=== PATIENT | male | born 1950 | race Caucasian/White ===

== ENCOUNTER 2019-11-11 06:00 | Outpatient (RCR) | payer MEDICARE, SELFPAY | END 2019-12-11 23:59 | disposition home or self-care (01) | LOC: TPT 06:00 | PROVIDERS: Family Provider Nurse Practitioner Family; Referring Provider Nurse Practitioner; Visit Provider Nurse Practitioner | DX: M54.5 Low back pain (principal) | CPT/HCPCS: 97032; 97110; 97140; 97161; 97530 ==

== ENCOUNTER 2019-12-12 06:00 | Outpatient (RCR) | payer MEDICARE, SELFPAY | END 2020-01-09 23:59 | disposition home or self-care (01) | LOC: TPT 06:00 | PROVIDERS: Family Provider Nurse Practitioner Family; Referring Provider Nurse Practitioner; Visit Provider Nurse Practitioner | DX: M54.5 Low back pain (principal); M79.10 Myalgia, unspecified site; Z96.642 Presence of left artificial hip joint | CPT/HCPCS: 97110 ==

== ENCOUNTER → 2020-05-24 13:39 | Outpatient (BNVA) | payer MEDICARE, SELFPAY | PROVIDERS: Family Provider Nurse Practitioner Family; PCP Nurse Practitioner Family; Visit Provider Urology | DX: Z12.5 Encounter for screening for malignant neoplasm of prostate (principal); N40.1 Benign prostatic hyperplasia with lower urinary tract symptoms; N13.8 Other obstructive and reflux uropathy | CPT/HCPCS: 81001 ==

== ENCOUNTER 2020-12-22 14:51 | Emergency (ER) | payer MEDICARE, SELFPAY ==
[2020-12-22 14:58] VITALS: BP 115/67; PULSE 84; RESP 18; TEMP 36.4; O2SAT 95; BMI 25.0
[2020-12-22 15:00] VITALS: BP 133/75; PULSE 80; RESP 16; TEMP 36.4; O2SAT 95
--- NOTE | 2020-12-22 15:07 | XR_ITS ---
WS: [id number] Left knee, 3 views, 12/22/2020 Clinical Data: fall Comparison: None. Findings: No fractures or dislocations are seen. The joint spaces are normal. The patella is intact. The soft t issues are unremarkable. There is an anterior superior spur of the patella. XR/XR knee LT 3V* [id number] Impression: Negative for fracture of the left knee.
--- NOTE | 2020-12-22 15:07 | XR_ITS ---
WS: [id number] Left wrist, 3 views, 12/22/2020 Clinical Data: fall Comparison: Left wrist, 12/08/2008. Findings: No fractures or dislocations are seen. The carpal bones are intact. There is no soft tissue swelling. The distal radius and ulna are not remarkable. The small fragment which is probably adjacent to the triquetrum is again seen. XR/XR wrist LT min 3V* [id number] Impression: Negative for new fracture of the left wrist.
--- NOTE | 2020-12-22 15:07 | XR_ITS ---
WS: [id number] Left ankle, 3 views, 12/22/2020 Clinical Data: fall Comparison: None Findings: There is an old fracture of the distal left tibia and of the distal left fibula. There is also an old fracture of the dome of the talus. The old tibial fracture has been repaired with an anterior plate and multiple orthopedic screws. No new fractures are seen. XR/XR ankle LT min 3V* [id number] Impression: 1. Negative for new fractures of the left ankle. 2. Internal fixation of old distal left tibial fracture, healed distal left fib ular fracture and healed left talar fracture.
--- NOTE | 2020-12-22 15:07 | W.ED.FALL ---
HPI - Fall General: Chief Complaint: Fall Stated Complaint: FELL, L SIDED PAIN Time Seen by Provider: 12/22/20 15:02 History of Present Illness: HPI Narrative: Patient slipped on ice landing on left side he said his left leg when in underneath him now he has left ankle pain (has a history of left ankle surgery with plates), left knee pain, and left wrist pain and he presents holding his left wrist patient did ambulate in. complaint: fall Onset (ago): hour(s) Fall from: standing Fall witnessed: yes, by family Place fall occurred: home Loss of consciousness: None Prolonged down time: no Symptoms prior to fall: none Context: tripped/slipped (Icy conditions) Location of injury: other (Left wrist knee and ankle) Location of injury - extremities: Left: hand, knee and ankle Severity: mild Severity scale (1-10): 3 Quality: aching Associated symptoms-after fall: Reports difficulty walking; Denies abdominal pain or chest pain Review of Systems Const: Denies: fever(s), chills or body aches Eyes: Denies: change in vision or blurry vision ENMT: Denies: throat pain or nasal congestion Card: Denies: chest pain or dyspnea on exertion Resp: Denies: dyspnea, productive cough or non-productive cough GI: Denies: abdominal pain, nausea or vomiting : Denies: difficulty urinating Musc: Reports: extremity pain and joint pain Skin/Breast: Denies: rash Neuro: Reports: difficulty walking Psych: Denies: anxiety or depression Himanshu/Lymph: Denies: easy bruising PFSH ED PFSH: Medical History (Updated 05/24/20 @ 15:13 by Agustin Craig MD) BPH loc w urin obs/LUTS Renal calculi Surgical History (Updated 05/24/20 @ 15:13 by Agustin Craig MD) H/O foot surgery S/P cholecystectomy S/P hernia repair Family History Father , 72 Lung disease Social History Smoking and tobacco status: former smoker Alcohol intake: never Marital status: Current occupational status: retired and disabled Physical Exam Const: COMMON NORMALS: no acute distress, average body habitus and patient oriented x3 HENMT: COMMON NORMALS: normocephalic HEAD & SCALP: normal to inspection and normocephalic FACE & SINUS: normal facial exam Eye: COMMON NORMALS: conjunctivae normal GENERAL EYE: appearance normal, both eyes and all related structures CONJUNCTIVA: Yes conjunctivae normal Neck/C-Spine: COMMON NORMALS: no JVD Chest: COMMONS NORMALS: normal inspection of the chest Resp: COMMON NORMALS: normal respiratory effort and clear to auscultation bilaterally AUSCULTATION: clear to auscultation bilaterally Cardio: COMMON NORMALS: no JVD, regular rate and regular rhythm RATE: regular rate RHYTHM: regular rhythm GI: COMMON NORMALS: Normal to inspection, nondistended, normoactive bowel sounds present Extremity: LEFT UPPER EXTREMITY: Yes wrist (Tender but has good range of motion no swelling) Left wrist: Yes neurovascular exam (Intact) LEFT LOWER EXTREMITY: Yes knee joint (Pain about 1 to 2 inches posterior and distal of the knee no swelling) and Yes ankle joint (Your to the medial aspect posteriorly no swelling) Neuro: COMMON NORMALS: patient oriented x3 and CN's II-XII intact bilaterally Course Vital Signs: Vital signs: Vital Signs Temperature 97.6 F 12/22/20 14:58 Pulse Rate 84 12/22/20 14:58 Respiratory Rate 18 12/22/20 14:58 Blood Pressure 115/67 12/22/20 14:58 Pulse Oximetry 95 12/22/20 14:58 Discharge Plan Discharge Prescriptions: No Action omeprazole 40 mg capsule,delayed release(DR/EC) 40 mg PO DAILY RF: 0 tamsulosin 0.4 mg capsule 0.4 mg PO DAILY RF: 0 Coding Level of Care Code ED Shoe Lining Fitter for Rejig Nori
--- NOTE | 2020-12-22 15:21 | PC.NURSE ---
XR performed at bedside
[2020-12-22 15:22] VITALS: BP 133/75; PULSE 80; RESP 16; O2SAT 95
[2020-12-22 16:10] VITALS: BP 114/62; PULSE 73; RESP 16; O2SAT 96
== END 2020-12-22 16:27 | disposition home or self-care (01) ==
PROVIDERS: Emergency Provider Nurse Practitioner Family; PCP Nurse Practitioner Family
DX: M25.572 Pain in left ankle and joints of left foot (principal); Z87.891 Personal history of nicotine dependence
CPT/HCPCS: 73110; 73562; 73610; 99282

== ENCOUNTER 2022-02-24 13:23 | Observation (INO) | payer MEDICARE, SELFPAY ==
[2022-02-24] VITALS (15 sets, daily range): BP systolic 106–169; BP diastolic 66–94; PULSE 52–72; RESP 13–27; O2SAT 97–99; BMI 26.4
--- NOTE | 2022-02-24 13:40 | XRR_ITS ---
PROCEDURE INFORMATION: Exam: XR Chest Exam date and time: 02/24/2022 1:47 PM Age: 71 years old Clinical indication: Pain; Chest pressure; Additional info: Chest pain TECHNIQUE: Imaging protocol: XR of the chest. Views: 1 view. COMPARISON: CR Chest 2 views* [id number] 02/19/2018 10:13 PM FINDINGS: Lungs: Unremarkable. No consolidation. Pleural spaces: Unremarkable. No pleural effusion. No pneumothorax. Heart/Mediastinum: Stable cardiomediastinal silhouette. Bones/joints: Unremarkable. XR/XR chest 1V portable [id number] IMPRESSION: No evidence of active cardiopulmonary disease.
--- NOTE | 2022-02-24 13:40 | ECG_ITS ---
[facility] Test Date: 2022-02-24 Pat Name: Arturo Curry Department: Room: Gender: Male Emr Analyst: : 1950 Requested By: Paul Mae Order Number: [id number] Nikolas MD: Марина Gandara M.D. Measurements Intervals [place] Rate: 55 P: 94 MA: 183 QRS: -34 QRSD: 106 T: 45 QT: 396 QTc: 382 Interpretive Statements SINUS BRADYCARDIA LEFT AXIS DEVIATION [QRS AXIS < -30] INCOMPLETE RIGHT BUNDLE BRANCH BLOCK [90+ ms QRS DURATION, TERMINAL R IN V1/V2, 40+ ms S IN I/aVL/V4/V5/V6] Compared to ECG 02/24/2022 13:35:31 No significant changes Electronically Signed On 02-25-2022 16:13:11 CDT by Марина Gandara M.D. [id number]
[2022-02-24 13:52] LABS: Basophils % 0.5 %; Eosinophils # 0.1 10^3/uL (0.0-0.8); Eosinophils % 1.4 %; Hemoglobin 14.7 g/dL (11.7-16.6); Lymphocytes # 2.3 10^3/uL (0.8-4.8); Lymphocytes % 29.4 %; Mean Corpuscular HGB Conc 32.7 g/dL (30.0-36.0); Mean Corpuscular Hemoglobin 29.2 pg (28.0-34.0); Mean Corpuscular Volume 89.5 fl (80-94); Mean Platelet Volume 9.8 fL (7.4-10.4); Monocytes # 0.9 10^3/uL (0.2-0.9); Monocytes % 10.8 %; Neutrophils # 4.59 10^3/uL (1.8-7.7); Neutrophils % 57.6 %; Nucleated Red Blood Cells % 0 %; Platelet Count 294 10^3/cmm (130-400); Red Blood Count 5.03 10^6/uL (4.1-5.3); Red Cell Distribution Width 12.4 % (12.1-15.1)
[2022-02-24] MEDS: aspirin 325 mg Tablet PO (14:07)
--- NOTE | 2022-02-24 14:14 | W.ED.GENADLT ---
HPI - General Adult General: Chief complaint: Chest Pain Stated complaint: chest pain / left arm pain Time Seen by Provider: 02/24/22 13:40 History of Present Illness: CC: Chest Pain HPI: This is a [71]yo patient hx of HTN, GERD presenting to the ED complaining of acute sudden onset was chest pressure started about an hour ago. Patient says that she was walking at the buggy when he suddenly developed chest pressure lasting for 20 minutes with radiation to the L neck/jaw and L arm. Patient had some chest pain when he first presented to the triage area however no longer having pain. No associated with shortness of breath, chest pain or dyspnea on exertion. Pain is not tearing in nature and does not radiate to the back. Pain not associated with vomiting or PO intake. Denies any recent sympathomimetic drug use. Patient denies any cough. Denies palpitations, dysphagia, diaphoresis, radiation of pain to bilateral arms, jaw. Denies F/N/V/D. Patient denies any recent immobility, surgery, unilateral leg swelling, or prior PE. Patient denies any orthopnea. Onset: 1 hr ago Duration: intermittent lasting for 20 minutes Location: home Severity: moderate Associated symptoms: Reports chest pain; Deny dyspnea, nausea, rash, palpitations or vomiting Review of Systems Const: Denies: fever(s) or chills Eyes: Denies: change in vision ENMT: Denies: mouth pain Card: Reports: chest pain; Denies: palpitations Resp: Denies: dyspnea or non-productive cough GI: Denies: abdominal pain, nausea, vomiting or diarrhea : Denies: dysuria Musc: Denies: extremity pain Skin/Breast: Denies: rash or new lesions Neuro: Denies: weakness in extremities Psych: Reports: other (Normal mood) Himanshu/Lymph: Denies: easy bruising PFSH ED PFSH: Medical History BPH loc w urin obs/LUTS Renal calculi Surgical History H/O foot surgery S/P cholecystectomy S/P hernia repair Family History Father , 72 Lung disease Social History Smoking and tobacco status: former smoker Alcohol intake: never Marital status: Current occupational status: retired and disabled Physical Exam Const: COMMON NORMALS: alert HENMT: COMMON NORMALS: atraumatic HEAD & SCALP: atraumatic MOUTH: moist mucous membranes not abnormal Eye: COMMON NORMALS: EOMs intact bilaterally and conjunctivae normal CONJUNCTIVA: Yes conjunctivae normal Neck/C-Spine: COMMON NORMALS: full ROM and supple Resp: COMMON NORMALS: normal respiratory effort and clear to auscultation bilaterally AUSCULTATION: clear to auscultation bilaterally Cardio: COMMON NORMALS: regular rate RATE: regular rate OTHER: 2+ radial pulses b/l GI: COMMON NORMALS: Soft to palpation and non-tender PALPATION: Yes Soft to palpation Extremity: COMMON NORMALS: full ROM Neuro: SENSORIUM/ORIENTATION: Yes alert MOTOR EXAM: No Abnormal motor strength present and Other motor observations present (no focal motor deficits) Psych: COMMON NORMALS: speech normal SPEECH: Yes normal speech MOOD & AFFECT: Yes euthymic mood Course Vital Signs: Vital signs: Vital Signs Pulse Rate 58 L 02/24/22 16:43 Respiratory Rate 18 02/24/22 16:43 Blood Pressure 147/94 02/24/22 16:43 Pulse Oximetry 99 02/24/22 16:43 [facility] - General Adult Medical Decision Making [71]yo patient w/ hx of HTN presenting to the ED with evaluation of new onset of chest pressure x 1 hr lasting for 20 minutes. HDS, pulse 2+ radially bilaterally, no signs of fluid overload, AAOx3, neuro exam intact. Given History and Exam today I have no suspicion for ACS, Pneumothorax, Pneumonia, Pulmonary Embolus, Tamponade, Aortic Dissection or other emergent problems as a cause for this presentation. Workup: ECG x 2, CXR, CBC, BMP, Troponinx 2 Interventions: ASA, morphine, nitro Findings: ECG: No overt evidence of STEMI, hyperacute T waves, localizable STD or T wave inversions. No evidence of Brugada?s sign, delta wave, epsilon wave, significantly prolonged QTc, or malignant arrhythmia. No Q waves. Other Labs unremarkable for emergent problems. CXR: Without PTX, PNA, or widened mediastinum Last Stress Test: never Last Heart Catheterization: never HEART score: [2:17pm] On reassessment, the patient is HDS, no complaints of persistent chest pain in the ED after evaluation. ECG is non-ischemic. Troponin of 18 from 10. Discussed case with Dr. Gloria who recommended treating this as an NSTEMI. Patient is placed on Lovenox 1 mg/kg. S/p ASA and pain control. Dispsition: admission Lab Data : 02/24/22 13:41 02/24/22 13:41 Radiology Impressions Chest X-Ray 02/24/22 13:40 IMPRESSION: No evidence of active cardiopulmonary disease. Laboratory Results WBC 8.0 10^3/uL (4.0-10.0) 02/24/22 13:41 RBC 5.03 10^6/uL (4.1-5.3) 02/24/22 13:41 Hgb 14.7 g/dL (11.7-16.6) 02/24/22 13:41 Hct 45.0 % (42.0-52.0) 02/24/22 13:41 MCV 89.5 fl (80-94) 02/24/22 13:41 MCH 29.2 pg (28.0-34.0) 02/24/22 13:41 MCHC 32.7 g/dL (30.0-36.0) 02/24/22 13:41 RDW 12.4 % (12.1-15.1) 02/24/22 13:41 Plt Count 294 10^3/cmm (130-400) 02/24/22 13:41 MPV 9.8 fL (7.4-10.4) 02/24/22 13:41 Neut % (Auto) 57.6 % 02/24/22 13:41 Lymph % (Auto) 29.4 % 02/24/22 13:41 [place] % (Auto) 10.8 % 02/24/22 13:41 Eos % (Auto) 1.4 % 02/24/22 13:41 Baso % (Auto) 0.5 % 02/24/22 13:41 Neut # (Auto) 4.59 10^3/uL (1.8-7.7) 02/24/22 13:41 Lymph # (Auto) 2.3 10^3/uL (0.8-4.8) 02/24/22 13:41 [place] # (Auto) 0.9 10^3/uL (0.2-0.9) 02/24/22 13:41 Eos # (Auto) 0.1 10^3/uL (0.0-0.8) 02/24/22 13:41 Baso # (Auto) 0.0 10^3/uL (0.0-0.1) 02/24/22 13:41 Nucleated RBC % (auto) 0 % 02/24/22 13:41 Nucleated RBCs # 0.0 /100WBC 02/24/22 13:41 Sodium 136 mmol/L (136-145) 02/24/22 13:41 Potassium 4.1 mmol/L (3.5-5.1) 02/24/22 13:41 Chloride 99 mmol/L (98-107) 02/24/22 13:41 Carbon Dioxide 28 mmol/L (22-29) 02/24/22 13:41 Anion Gap 13.1 (5-19) 02/24/22 13:41 BUN 11 mg/dL (8-23) 02/24/22 13:41 Creatinine 1.0 mg/dL (0.7-1.2) 02/24/22 13:41 GFR Calculation Not Reportable 02/24/22 13:41 Glucose 110 mg/dL (65-115) 02/24/22 13:41 Calculated Osmolality 282 mOsm/kg (285-295) L 02/24/22 13:41 Calcium 8.6 mg/dL (8.5-10.5) 02/24/22 13:41 Troponin T Baseline 10 ng/L (0-15) 02/24/22 13:41 Troponin T 120 Minute 18.53 ng/L (0-15) H 02/24/22 15:35 Delta Troponin T 8.53 ABS# (0-10) 02/24/22 15:35 Discharge Plan Discharge Patient Disposition: Admitted As Inpatient Clinical Impression: Chest pain, Elevated troponin Condition: Stable Coding Level of Care Code ED Apartment Maintenance for Alison Fwd Exam Comprehensive
[2022-02-24 14:21] LABS: Anion Gap 13.1 (5-19); Blood Urea Nitrogen 11 mg/dL (8-23); Calcium 8.6 mg/dL (8.5-10.5); Carbon Dioxide 28 mmol/L (22-29); Chloride 99 mmol/L (98-107); Glucose 110 mg/dL (65-115); Osmolality Calculated 282 mOsm/kg (285-295); Potassium 4.1 mmol/L (3.5-5.1); Sodium 136 mmol/L (136-145)
[2022-02-24 14:22] LABS: Troponin(5th) Baseline 10 ng/L (0-15)
--- NOTE | 2022-02-24 15:40 | ECG_ITS ---
[facility] Test Date: 2022-02-25 Pat Name: Arturo Curry Department: Room: 105 Gender: Male Occupational Therapy Assistant: : 1950 Requested By: Paul Mae Order Number: [id number] Nikolas MD: Марина Gandara M.D. Measurements Intervals [place] Rate: 61 P: 112 SC: 185 QRS: -56 QRSD: 110 T: 51 QT: 402 QTc: 407 Interpretive Statements SINUS RHYTHM PATTERN CONSISTENT WITH PULMONARY DISEASE INCOMPLETE RIGHT BUNDLE BRANCH BLOCK [90+ ms QRS DURATION, TERMINAL R IN V1/V2, 40+ ms S IN I/aVL/V4/V5/V6] LEFT ANTERIOR FASCICULAR BLOCK [QRS AXIS <= -45, QR IN I, RS IN II] Compared to ECG 02/25/2022 12:55:59 Left anterior fascicular block now present Sinus bradycardia no longer present Left-axis deviation no longer present Electronically Signed On 02-27-2022 7:50:03 CDT by Марина Gandara M.D. [id number]
[2022-02-24 16:06] LABS: Troponin 5 2HR 18.53 ng/L (0-15)
[2022-02-24 16:10] LABS: Troponin 5 2HR Delta 8.53 ABS# (0-10)
[2022-02-24] MEDS: enoxaparin 80 mg/0.8 mL Syringe SUBCUT (16:33)
--- NOTE | 2022-02-24 18:08 | PC.NURSE ---
HR:57 O2:99 ROOM AIR RR: 20 BP: 158/92 TEMP:97.6 ORAL
--- NOTE | 2022-02-24 18:12 | PC.NURSE ---
Patient arrived to CSU via wheelchair with present at bedside. Patient is not currently experiencing any chest pain. Patient has been oriented to room and use of call negron. Patient has been educated regarding what to expect while in the hospital. VS are stable and patient is alert and oriented. Patient ambulate ad christa. Nurse will continue to monitor.
--- NOTE | 2022-02-24 18:38 | P.HP_ITS ---
Providers/Chief Complaint Admitting Physician: Marisela Gloria MD Primary Care Provider: Britt Zhang APN Chief Complaint: chest pain / left arm pain History of Present Illness Arturo Curry is a 71 year old male with no significant past medical history other than BPH and GERD presented to the hospital for chief complaint of chest pain. Patient stating that lately has been feeling extremely fatigued and lethargic. He states that he has less muscles of his legs because of polio when he was a child. Today when he walked out of the game, he was walking towards his car when he started experiencing chest tightness which are associated with left arm pain. He is describing his chest tightness as a bolus of food being stuck. Chest pain last for about 10 minutes. His arm pain stayed for about 60 minutes. Persistent left-sided arm pain prompted his visit to the ER. He is denying diaphoresis, nausea, vomiting. He considers himself fairly active for his age has not experienced similar symptoms before. Because of recent fatigue and lethargy his daily activities are slightly compromised but he has not experienced any orthopnea, PND or worsening of shortness of breath. He has no previous diagnosis of bradycardia. In the ER he was treated with therapeutic Lovenox, high-dose aspirin, EKG showing incomplete right bundle ashtyn block, first troponin is 10-second is 18 with delta of 8 I have requested D-dimer, serial troponin and EKG, at the time of my evaluation patient was symptom-free heart rate was fluctuating between 62-65, sinus rhythm, family at the bedside, blood pressure 129/66 mmHg. is stating that mostly his heart rate stays above 90 is. Patient is stating that he was given nitroglycerin however I do not see that order in our EMR. Patient is denying cough and shortness of breath on lying flat, his last bowel movement was yesterday. He denies previous history of CHF, [place], coronary disease or sudden cardiac in the family. Review of Systems Const: Reports: body aches Eyes: Denies: change in vision ENMT: Denies: throat pain Card: Reports: chest pain Resp: Denies: dyspnea GI: Denies: abdominal pain : Denies: flank pain Musc: Denies: neck pain Skin/Breast: Denies: rash Psych: Denies: anxiety Endo: Denies: polyuria Himanshu/Lymph: Denies: easy bruising All/Imm: Denies: urticaria Medications/Allergies Home Medications Medication Instructions Recorded Confirmed Last Taken Type omeprazole 40 mg capsule,delayed 40 mg PO DAILY 05/24/20 02/24/22 02/24/22 History release tamsulosin 0.4 mg capsule 0.8 mg PO DAILY 05/24/20 02/24/22 02/24/22 History Allergies Allergy/AdvReac Type Severity Reaction Status Date / Time codeine Allergy ALGY-Difficulty Verified 12/22/20 15:01 Breathing iodine Allergy NA Verified 02/03/20 13:15 morphine Allergy ADR-Halluci Verified 12/22/20 15:01 nating PFSH Acute PFSH: Medical History (Updated 02/24/22 @ 19:09 by Nathalie Manley MD) BPH loc w urin obs/LUTS Hypotestosteronism Poliomyelitis Renal calculi Surgical History H/O foot surgery S/P cholecystectomy S/P hernia repair Family History Father , 72 Lung disease Social History Smoking and tobacco status: former smoker Alcohol intake: never Marital status: Current occupational status: retired and disabled Vitals/I&O/Wt Last Vital Signs Pulse 58 L 02/24/22 17:57 Resp 18 02/24/22 17:15 BP 129/66 02/24/22 17:15 Pulse Ox 99 02/24/22 17:15 Weight last 48 hrs Weight 88.451 kg Physical Exam Narrative: Very pleasant male Looks euvolemic at the bedside S1, S2 No murmur Abdomen soft Bilateral breath sound without any adventitious rhonchi or crackles No active chest pain or shortness of breath Saturating well Heart rate 65 Blood pressure 129/66 limit work EOMI, PERRLA Nonfocal neuro exam NIH 0 Data : 02/24/22 13:41 02/24/22 13:41 A&P Assessment and plan (1) Unstable angina: Status: Acute (2) Sinus bradycardia: Status: Acute Plan 71-year-old gentleman who does not have significant past medical history presented today with chief complaint of chest pain associate with left arm pain, chest pain resolved within 10 minutes and left arm persisted for about 60 minutes as per the patient he was given nitroglycerin which improved his left arm pain Unstable angina Delta troponin 8 EKG showing incomplete bundle branch block, no significant ischemic or infarctive changes on the EKG Will check D-dimer Blood pressure 129/66 minimum 3, heart rate 58 Check TSH He has been given therapeutic dose of Lovenox in the ER I would like to trend his troponin and EKG overnight and decide further in the morning whether we would continue Lovenox therapeutic regimen I will request stress test for Saturday and monitor him in the hospital on Saturday Add low-dose lisinopril We will give him therapeutic dose of Plavix Further dose of Plavix could be decided after overnight serial troponin and EKG For now continue aspirin, statins, lisinopril, hold off on AV sierra blocking agent because of bradycardia In case of any recurrent chest pain I would not recommend nitroglycerin, would recommend morphine Will update cardiology if he gets recurrent symptoms at rest during his stay Bradycardia Rule out PE however risk factors are low Check D-dimer Not on any AV sierra blocking agent Incomplete right bundle branch block Rule out ACS Full code Cardiac diet DVT prophylaxis Lovenox updated Daughter at the bedside as well All questions were answered to the satisfaction Attestations Medical Necessity Statement*: will need stress test on Saturday we are not able to do a stress test over the weekend, he needs monitoring in the hospital for now, we will admit him as observation, anticipating discharge in next 48 hours Time Spent in Patient Care: 45mins Coding Level of Care Code Acute Parachute Panel Joiner for Alison Julio Diagnoses Unstable angina I20.0 Sinus bradycardia R00.1
[2022-02-24 18:59] LABS: D Dimer 0.69 ug/mIFEU (0-0.59)
[2022-02-24 19:13] LABS: Creatine Phosphokinase 42 U/L (39-308); Lactate Dehydrogenase 123 U/L (135-225); Thyroid Stimulating Hormone 1.01 uIU/mL (0.27-4.20)
--- NOTE | 2022-02-24 19:14 | USCV_ITS ---
Arturo Curry Age: 71 Gender: M : 1950 Exam Date: 02/24/2022 23:09 Ordering Phys: Nathalie Manley MD Technologist: Vasyl Gillette Exam Location: [facility] [place]_ Indication: leg cramps HISTORY: leg cramps PROCEDURES: Venous duplex imaging was performed in bilateral lower extremities. The following venous structures were evaluated: common femoral vein, profunda vein, proximal portion of the greater saphenous vein, superficial femoral vein, and the popliteal vein. In addition, the posterior tibial and peroneal trunk were evaluated. Serial compression, augmentation maneuvers, and spectral Doppler flow evaluation were performed. FINDINGS: Normal 2-D Doppler and augmentation and compressibility throughout the lower extremity venous structures. Additional imaging through the proximal calf veins also reveals no thrombus. Limited evaluation of the greater saphenous vein is patent with no thrombus.. The veins were found to be easily compressible with spontaneous blood flow. Non pulsatile flow pattern. CONCLUSIONS No evidence of DVT in the above-mentioned identifiable veins. Dr Vanesa Paz MD [facility] (Electronically Signed) Final Date: 26 February 2022 17:28 S
--- NOTE | 2022-02-24 19:14 | USCV_ITS ---
Arturo Curry Age: 71 Gender: M : 1950 Exam Date: 02/24/2022 23:40 Ordering Phys: Nathalie Manley MD Technologist: Vasyl Gillette [place] [facility] [place]: Unstable Angina BP: 140 / 80 HR: 64 Rhythm: Sinus Technical Quality: Adequate MEASUREMENTS (Male / Female) Normal Values 2D ECHO LV Diastolic Diameter PLAX 3.0 cm 4.2 - 5.9 / 3.9 - 5.3 cm LV Systolic Diameter PLAX 1.9 cm IVS Diastolic Thickness 2.6 cm 0.6 - 1.0 / 0.6 - 0.9 cm IVS Systolic Thickness 2.4 cm LVPW Diastolic Thickness 1.1 cm 0.6 - 1.0 / 0.6 - 0.9 cm LVPW Systolic Thickness 2.0 cm LVOT Diameter 2.0 cm LV Ejection Fraction 2D Teich 68.3 % LV Ejection Fraction MOD 2C 48.6 % LV Ejection Fraction 2C AL 48.6 % LA Diameter 3.5 cm Aorta at Sinotubular Diameter 2.9 cm M-MODE Aortic Annulus Diameter 3.5 cm LA Ao Ratio MM 1.1 MV E Point Septal Separation 0.8 cm DOPPLER AV Peak Velocity 144.8 cm/s LVOT Peak Velocity 110.0 cm/s AV Area Cont Eq vti 2.9 cm squared AV Area Cont Eq pk 2.5 cm squared MV Area PHT 2.6 cm squared Mitral E to A Ratio 1.0 MV E' Velocity 48.6 cm/s Mitral E to MV E' Ratio 8.5 Mitral E to LV E' Lateral Ratio 7.8 Mitral E to LV E' Septal Ratio 9.3 Right Atrial Pressure 3.0 mmHg PV Peak Velocity 127.0 cm/s FINDINGS Left Ventricle Normal left ventricular size and systolic function with no regional wall motion abnormalities. Left ventricular ejection fraction is estimated at 60-65 %. Normal diastolic function. Right Ventricle Normal right ventricular size and systolic function. Right Atrium Normal right atrial size. Left Atrium Normal left atrial size. Mitral Valve Mildly thickened mitral valve. No mitral valve stenosis. No significant mitral valve regurgitation. Aortic Valve Aortic valve not well visualized. No aortic valve stenosis. No aortic valve regurgitation. Tricuspid Valve Tricuspid valve not well visualized. Pulmonic Valve Pulmonic valve not well visualized. No pulmonary valve stenosis. Pericardium No pericardial effusion. Aorta Normal size aortic root and proximal ascending aorta. CONCLUSIONS 1. Normal left ventricular size and systolic function with no regional wall motion abnormalities. Left ventricular ejection fraction is estimated at 60-65 %. Normal diastolic function. 2. No prior similar studies to compare. Марина Gandara MD (Electronically Signed) Final Date: 25 February 2022 09:28 S
--- NOTE | 2022-02-24 19:40 | ECG_ITS ---
[facility] Test Date: 2022-02-24 Pat Name: Arturo Curry Department: Room: Gender: Male Senior Production Manager: : 1950 Requested By: Paul Mae Order Number: [id number] Nikolas MD: Марина Gandara M.D. Measurements Intervals [place] Rate: 59 P: 57 [place]: 179 QRS: -44 QRSD: 108 T: 50 QT: 389 QTc: 388 Interpretive Statements SINUS BRADYCARDIA LEFT AXIS DEVIATION [QRS AXIS < -30] INCOMPLETE RIGHT BUNDLE BRANCH BLOCK [90+ ms QRS DURATION, TERMINAL R IN V1/V2, 40+ ms S IN I/aVL/V4/V5/V6] No previous ECG available for comparison Electronically Signed On 02-24-2022 15:02:13 CDT by Марина Gandara M.D. [id number]
[2022-02-24] MEDS: lidocaine 2% viscous 15 ML, aluminum-mag hydrox-simethicon 30 ML, sucralfate oral liq 1 GM PO (20:28)
[2022-02-24] MEDS: clopidogrel 300 mg Tablet PO (20:29)
[2022-02-24 20:44] LABS: Troponin 5 6HR 92.07 ng/L (0-15)
[2022-02-24 20:46] LABS: Troponin 5 6HR Delta 82.07 ng/L (0-12)
[2022-02-24] MEDS: nitroglycerin 1 gm/inch oint Pkt 1 INCH TOPICAL (21:34)
[2022-02-24] MEDS: atorvastatin 40 mg Tablet PO (21:34)
[2022-02-25] VITALS (26 sets, daily range): BP systolic 88–157; BP diastolic 48–109; PULSE 55–69; RESP 14–26; TEMP 36.3–36.4; O2SAT 94–97
[2022-02-25] MEDS: nitroglycerin 1 gm/inch oint Pkt 0.5 INCH TOPICAL ×4 (04:09→21:30)
[2022-02-25 04:22] LABS: Anion Gap 11.1 (5-19); Blood Urea Nitrogen 15 mg/dL (8-23); Calcium 7.9 mg/dL (8.5-10.5); Carbon Dioxide 29 mmol/L (22-29); Chloride 102 mmol/L (98-107); Glucose 114 mg/dL (65-115); Magnesium 2.1 mg/dL (1.7-2.3); Osmolality Calculated 288 mOsm/kg (285-295); Potassium 4.1 mmol/L (3.5-5.1); Sodium 138 mmol/L (136-145)
--- NOTE | 2022-02-25 06:43 | PC.NURSE ---
Pt lying in bed resting and talking to staff. Pts resp even and non-labored no distress noted. Pt had no c/o pain or discomfort at the present time. No needs voiced. Call light in reach.
[2022-02-25] MEDS: enoxaparin 80 mg/0.8 mL Syringe SUBCUT ×2 (07:02→18:54)
[2022-02-25] MEDS: pantoprazole DR 40 mg Tablet 20 MG PO (08:21)
[2022-02-25] MEDS: sennosides-docusate Tablet 1 TAB PO (08:22)
[2022-02-25] MEDS: aspirin 81 mg EC Tablet PO (08:23)
--- NOTE | 2022-02-25 11:34 | PM.PN ---
Subjective Subjective: This morning. Patient 6-hour troponin resulted last night and delta troponins were 83. At that point he was placed on Nitropaste by night hospitalist. He is also on full dose Lovenox since admission. He has been chest pain-free overnight. Blood pressure stable. Did have bradycardic episodes down to low 50s. Patient states that he is a former smoker and his brother has CAD and has 5 stents. Family present in room. Echo completed, report is pending. Vitals/I&O/Wt Last Vital Signs Temp 97.6 F 02/25/22 07:13 Pulse 61 02/25/22 07:13 Resp 26 H 02/25/22 07:13 BP 121/77 02/25/22 07:13 Pulse Ox 96 02/25/22 07:13 02/24/22 02/25/22 02/25/22 22:59 06:59 14:59 Intake Total 50 / 50 0 / 50 360 / 360 Balance 50 / 50 0 / 50 360 / 360 Weight last 48 hrs Weight 88.451 kg Physical Exam Narrative: General: Alert oriented x3, patient seen sitting up in bed appearing very comfortable. HEENT: Normocephalic, atraumatic, EOMI, breathing normally Cardio: Regular rate rhythm, normal S1-S2, no murmurs Respiratory: Good bilateral air entry, no wheezes no rhonchi appreciated GI: Abdomen soft, nontender, nondistended, bowel sounds + Behavior: Appropriate and cooperative Extremities: no edema, no cyanosis Data : 02/24/22 13:41 02/25/22 03:34 A&P Assessment and plan (1) Sinus bradycardia: Status: Acute (2) NSTEMI (non-ST elevated myocardial infarction): Status: Acute (3) BPH (benign prostatic hyperplasia): Status: Acute Plan #NSTEMI #BPH ? EKG shows incomplete right bundle branch block ? Continue ACS protocol ? Lovenox 80 subcu twice daily ? Loaded with Plavix 300 mg in ER ? Atorvastatin 80 daily, aspirin 81 ? Hold off on beta-ludmila due to bradycardia ? Patient was initially ordered a stress test on admission. ? Consult cardiology. Will discuss with cardiology in regards to stress test versus angiogram for patient Daughter and grandchildren present at bedside. Full code DVT prophylaxis on full dose Lovenox at this time. Attestations Medical Necessity Statement*: Greater than 24 to 48-hour stay for stress test versus angiogram. Patient is being managed for NSTEMI at this time. Coding Level of Care Code Acute Offshore Diver for Alison Julio Diagnoses Sinus bradycardia R00.1 NSTEMI (non-ST elevated myocardial infarction) I21.4 BPH (benign prostatic hyperplasia) N40.0
--- NOTE | 2022-02-25 11:54 | PM.CONSULT ---
Providers/Reason For Consult Consulting Physician/Specialty*: Dr. Gandara, Cardiology Reason for Consult*: NSTEMI Attending Physician: Marisela Gloria MD Primary Care Provider: Britt Zhang APN History of Present Illness History of Present Illness Arturo Curry is a 71 year old male with PMHx of GERD, BPH, former somoker (1 PPD x 20 years, quit 20 years ago) and family h/o CAD (younger brother with h/o stents). He complains of intermittent left arm pain 4-5/10 that he thought was d/t overdoing things but yesterday while walking he developed chest pressure described like a bubble in his chest with pain in left arm that was squeezing in nature lasted for about 20 minutes or so. The pain in his left arm lasted longer and hence he presented to ER. No URI/UTI like symptoms. Troponin T on arrival was 10 that increased to >90 at 6 hr. He is currently CP free. EKG shows sinus bradycardia, left axis devition and incomplete RBBB. Review of Systems Const: Reports: body aches Eyes: Denies: change in vision ENMT: Denies: throat pain Card: Reports: chest pain; Denies: irregular heart rhythm, edema, orthopnea or leg pain with exertion Resp: Denies: dyspnea GI: Denies: abdominal pain, nausea, vomiting, hematemesis or hematochezia : Denies: flank pain or hematuria Musc: Denies: neck pain Skin/Breast: Denies: rash or pruritus Neuro: Denies: headache(s) or dizziness Psych: Denies: anxiety or depression Endo: Denies: polyuria Himanshu/Lymph: Denies: easy bruising, petechiae or purpura All/Imm: Denies: urticaria Medications/Allergies Home Medications Medication Instructions Recorded Confirmed Last Taken Type omeprazole 40 mg capsule,delayed 40 mg PO DAILY 05/24/20 02/24/22 02/24/22 History release tamsulosin 0.4 mg capsule 0.8 mg PO DAILY 05/24/20 02/24/22 02/24/22 History Allergies Allergy/AdvReac Type Severity Reaction Status Date / Time codeine Allergy ALGY-Difficulty Verified 12/22/20 15:01 Breathing iodine Allergy NA Verified 02/03/20 13:15 morphine Allergy ADR-Halluci Verified 12/22/20 15:01 nating Current Medications Generic Name Dose Route Start Last Admin Trade Name Jessica PRZakiya Reason Stop Dose Admin Aspirin 81 mg 02/25/22 09:00 02/25/22 08:23 Aspirin 81 Mg Ec Tablet PO 03/02/22 23:59 81 mg DAILY JEROD Administration Enoxaparin Sodium 80 mg 02/25/22 07:00 02/25/22 07:02 Enoxaparin 80 Mg/0.8 Ml Syringe SUBCUT 80 mg Q12H JEROD Administration Nitroglycerin 0.5 inch 02/25/22 04:00 02/25/22 09:54 Nitroglycerin 1 Gm/Inch Oint Pkt TOPICAL 0.5 inch Q6H JEROD Administration Pantoprazole Sodium 20 mg 02/25/22 09:00 02/25/22 08:[address] 40 Mg Tablet PO 20 mg DAILY JEROD Administration Senna/Docusate Sodium 1 tab 02/25/22 09:00 02/25/22 08:22 Sennosides-Docusate Tablet PO 1 tab DAILY JEROD Administration PFSH Acute PFSH: Medical History BPH loc w urin obs/LUTS Hypotestosteronism Poliomyelitis Renal calculi Surgical History H/O foot surgery S/P cholecystectomy S/P hernia repair Family History Father , 72 Lung disease Social History Smoking and tobacco status: former smoker Alcohol intake: never Marital status: Current occupational status: retired and disabled Vitals/I&O/Wt Last Vital Signs Temp 97.4 F L 02/25/22 11:47 Pulse 59 L 02/25/22 11:47 Resp 21 H 02/25/22 11:47 BP 111/70 02/25/22 11:47 Pulse Ox 97 02/25/22 11:47 02/24/22 02/25/22 02/25/22 22:59 06:59 14:59 Intake Total 50 / 50 0 / 50 360 / 360 Balance 50 / 50 0 / 50 360 / 360 Weight last 48 hrs Weight 195 lb Physical Exam Narrative: Gen: NAD HEENT: No pallor, icterus RS: CTAB/L; No wheezes or rales CVS: S1, S2 regular, No murmur, rub or gallop EXt: No edema, cyanosis or clubbing; 2+ DP and PT. SLIDING JOINT MAKER: AAOx 3, No FND Skin: No rashes or lesions Data : 02/24/22 13:41 02/25/22 03:34 Other Labs: Baseline troponin T of 10, 2 hr of 18.5 a nd 6 hr of 92 CXR: Radiologist's impression: IMPRESSION: No evidence of active cardiopulmonary disease. EKG 1: My Interpretation: sinus bradycardia, left axis deviation. Incomplete RBBB EKG computer-generated impression: Chest X-Ray 02/24/22 13:40 IMPRESSION: No evidence of active cardiopulmonary disease. EKG 2: My Interpretation: sinus bradycardia, left axis deviation. Incomplete RBBB. EKG computer-generated impression: Chest X-Ray 02/24/22 13:40 IMPRESSION: No evidence of active cardiopulmonary disease. Other data: TTE (02/25/22) CONCLUSIONS ?1. Normal left ventricular size and systolic function with no ?regional wall motion abnormalities. Left ventricular ejection ?fraction is estimated at 60-65 %. Normal diastolic function. ?2. No prior similar studies to compare. A&P Assessment and plan (1) NSTEMI (non-ST elevated myocardial infarction): Cardiac chest pain with increase in troponin from 10 to >90. -CAD risk factors of age, sex, h/o smoking and family h/o CAD -Plan for LHC in morning -Iodine allergy (headache, ?rash); possibly tolerated contrast in past (unsure) -will premedicate Risks and benefits were discussed with the patients. Alternate management options were discussed with the patient as well. Possible complications including risk of heart attack stroke and , coronary perforation, arrhythmia, cardiac tamponade in urgent CABG were discussed with the patient as well. Status: Acute (2) Sinus bradycardia: Status: Acute (3) BPH (benign prostatic hyperplasia): Status: Acute Plan Formal smoker Family h/o smoker Thank you for allowing me to participate in patient's care. Please feel free to call with questions or concerns Coding Level of Care Code Acute Instructional Design Specialist for [facility] Diagnoses NSTEMI (non-ST elevated myocardial infarction) I21.4 Sinus bradycardia R00.1 BPH (benign prostatic hyperplasia) N40.0
--- NOTE | 2022-02-25 11:59 | ECG_ITS ---
[facility] Test Date: 2022-02-25 Pat Name: Arturo Curry Department: Room: 105 Gender: Male Commercial Agent: : 1950 Requested By: Марина Gandara Order Number: [id number] Nikolas MD: Марина Gandara M.D. Measurements Intervals [place] Rate: 57 P: 105 [place]: 178 QRS: -37 QRSD: 103 T: 43 QT: 400 QTc: 392 Interpretive Statements SINUS BRADYCARDIA LEFT AXIS DEVIATION [QRS AXIS < -30] INCOMPLETE RIGHT BUNDLE BRANCH BLOCK Compared to ECG 02/24/2022 15:38:18 No significant changes Electronically Signed On 02-25-2022 16:14:04 CDT by Марина Gandara M.D. [id number]
[2022-02-25 13:08] LABS: Chol HDL Ratio 5.41 mg/dL (1.0-5.00); Cholesterol 146 mg/dL (0-200); HDL Cholesterol 27 mg/dL (60-100); LDL Cholesterol Calculated 86 mg/dL (50-129); Triglycerides 164 mg/dL (0-150); VLDL Cholestrol Calculation 33 mg/dL (0-30)
[2022-02-25 13:28] LABS: Estmated Average Glucose 103; Hemoglobin A1C 5.2 % (4.0-6.0)
[2022-02-25] MEDS: clopidogrel 75 mg Tablet PO (15:37)
--- NOTE | 2022-02-25 19:53 | PC.NURSE ---
Pt presents lying in bed resting with eyes closed. Resp even and non-labored no distress or sob noted. Pt had no c/o pain or discomfort at the present time. No needs voiced. at bedside. Call light in reach.
[2022-02-25] MEDS: atorvastatin 40 mg Tablet 80 MG PO (21:30)
[2022-02-26] VITALS (27 sets, daily range): BP systolic 125–159; BP diastolic 74–115; PULSE 55–83; RESP 12–27; TEMP 36.1–36.8; O2SAT 92–98
[2022-02-26] MEDS: nitroglycerin 1 gm/inch oint Pkt 0.5 INCH TOPICAL (03:23)
[2022-02-26 03:32] LABS: Basophils % 0.3 %; Eosinophils # 0.1 10^3/uL (0.0-0.8); Eosinophils % 1.8 %; Hematocrit 40.7 % (42.0-52.0); Hemoglobin 13.1 g/dL (11.7-16.6); Lymphocytes # 2.1 10^3/uL (0.8-4.8); Lymphocytes % 26.3 %; Mean Corpuscular HGB Conc 32.2 g/dL (30.0-36.0); Mean Corpuscular Hemoglobin 29.1 pg (28.0-34.0); Mean Corpuscular Volume 90.4 fl (80-94); Mean Platelet Volume 9.7 fL (7.4-10.4); Monocytes % 11.9 %; Neutrophils # 4.76 10^3/uL (1.8-7.7); Neutrophils % 59.6 %; Nucleated Red Blood Cells % 0 %; Platelet Count 245 10^3/cmm (130-400); Red Cell Distribution Width 12.4 % (12.1-15.1)
[2022-02-26 03:54] LABS: Anion Gap 11.5 (5-19); Blood Urea Nitrogen 13 mg/dL (8-23); Calcium 8.9 mg/dL (8.5-10.5); Carbon Dioxide 25 mmol/L (22-29); Chloride 104 mmol/L (98-107); Glucose 98 mg/dL (65-115); Magnesium 2.1 mg/dL (1.7-2.3); Osmolality Calculated 282 mOsm/kg (285-295); Potassium 4.5 mmol/L (3.5-5.1); Sodium 136 mmol/L (136-145)
[2022-02-26] MEDS: diphenhydrAMINE 50 mg/mL SDV 1mL IVP (06:38)
[2022-02-26] MEDS: sodium chloride 0.9% 1,000 ML 50 ML IV (06:38)
--- NOTE | 2022-02-26 06:48 | PM.PN ---
Subjective Subjective: Feels good. s/p [facility] today. He was found to have severe stenosis in px LAD and mid RCA and underwent MATT placement X 2 Medications: Reviewed: Yes Vitals/I&O/Wt Last Vital Signs Temp 97.3 F L 02/26/22 03:35 Pulse 62 02/26/22 05:00 Resp 23 H 02/26/22 03:35 BP 126/82 02/26/22 03:35 Pulse Ox 98 02/26/22 03:35 02/25/22 02/25/22 02/26/22 14:59 22:59 06:59 Intake Total 360 / 360 360 / 720 0 / 720 Balance 360 / 360 360 / 720 0 / 720 Weight last 48 hrs Weight 195 lb Physical Exam Narrative: Gen: NAD HEENT: No pallor, icterus RS: CTAB/L; No wheezes or rales CVS: S1, S2 regular, No murmur, rub or gallop EXt: No edema, cyanosis or clubbing; 2+ DP and PT. SENIOR DATABASE PROGRAMMER: AAOx 3, No FND Skin: No rashes or lesions Data : 02/26/22 03:10 02/26/22 03:10 A&P Assessment and plan (1) NSTEMI (non-ST elevated myocardial infarction): Cardiac chest pain with increase in troponin from 10 to >90. -CAD risk factors of age, sex, h/o smoking and family h/o CAD -Iodine allergy (headache, ?rash); possibly tolerated contrast in past (unsure) -severe stenosis in px LAD and mid RCA and underwent MATT placement X 2; LVEDP of 15 Status: Acute (2) Sinus bradycardia: Status: Acute (3) BPH (benign prostatic hyperplasia): Status: Acute Plan Hyperlipidemia Formal smoker Family h/o CAD Thank you for allowing me to participate in patient's care. Please feel free to call with questions or concerns Attestations Medical Necessity Statement*: needs hospital stay for NSTEMI and post stent placement Coding Level of Care Code Acute Political Science Chair for nilay Fwd Diagnoses NSTEMI (non-ST elevated myocardial infarction) I21.4 Sinus bradycardia R00.1 BPH (benign prostatic hyperplasia) N40.0
--- NOTE | 2022-02-26 08:00 | XACV_ITS ---
Exam Room: [facility] Ht: 183 cm Wt: 88 kg BSA: 2.13 m2 Gender: Male : 1950 Exam Priority: Routine Procedure(s): Procedure Description: Diagnostic procedure Procedure Description: PCI procedure Procedure Description: Left Heart Catheterization Procedure Description: Left ventriculography Procedure Description: Drug Eluting Coronary Stent Procedure Description: PTCA Procedure Description: Miscellaneous Procedure Description: Angio-Seal Procedure Description: ACT Procedure Description: Coronary Angiography Diagnostic Cath Status: Urgent Diagnostic Findings * 71 yo man with h/o smoking, GERD and family history of CAD presented with chest pain. Troponin T increased from 10 to >90. Normal LV function with no RWMA on echocardiogram. I decided to proceed with cardiac catheterization for NSTE-ACS. * Angiography shows a right coronary dominant system. * Normal calibre left main. * Small to medium calibre left anterior descending artery territory. Proximal LAD 80 % stenosis that extends below the take off of first diagonal artery. MARIE-3 flow. Short segment bridging noted in mid LAD. * Medium calibre left circumflex artery with minor irregularities. * Medium calibre dominant right coronary artery. Short discreet 90% stenosis in mid RCA. MARIE 3 flow. Mild stenosis in distal RCA. * Case was discussed and images were reviewed with Dr. Portillo. Decision was made to proceed with intervention of LAD and RCA lesions. PCI Status: Urgent PCI Indication: NSTE - ACS Interventional Findings * Procedure Detail: We initially attempted performing PCI through right radial access however because of tortuosity and spasm had to switch to right femoral artery access. JR4 guide catheter was used to engage RCA. 0.014 run-through guidewire was used to cross the stenosis and was put in the distal vessel. We predilated the stenosis with 2.5 x 12 mm noncompliant balloon. This was followed by placement of 3.5 x 15 mm resolute Madelia drug-eluting stent. At this time final angiogram was performed that showed excellent stent expansion, MARIE-3 flow and no residual stenosis. We then switched to LAD PCI. XB 3.5 guide catheter was used to engage left main artery. 0.014 run-through guidewire was used to cross proximal LAD stenosis and was put in distal vessel. We predilated the stenosis with 2.5 x 12 mm semi-compliant balloon. This was followed by placement of 3.5 x 15 mm resolute Yoel drug-eluting stent. At this time final angiogram was performed that showed excellent stent expansion, MARIE-3 flow and no residual stenosis. Guidewire and guide catheter were removed. Patient left the Carbon Rod Inserter in a stable condition.. * Proximal Left Anterior Descendin% stenosis treated with a AB TREK 2.50X12 RX BALLOON, and MDT R YOEL 3.5X15 MATT. * Mid Right Coronary Artery: 70% stenosis treated with a AB TREK 2.50X12 RX BALLOON, and MDT R YOEL 3.5X15 MATT. Conclusions 1. Cardiac Catheterization two vessel coronary artery disease. 2. Severe proximal left anterior and mid right coronary artery stenosis were treated with balloon angioplasty followed by drug eluting stent placement. 3. Proximal Left Anterior Descending was treated with a Balloon, and Drug Eluting Stent. 4. Mid Right Coronary Artery was treated with a Balloon, and Drug Eluting Stent. Recommendations * Dual antiplatelet therapy with aspirin and Plavix for at least 1 year.. * High intensity statin therapy. * Outpatient cardiology follow-up in 4 weeks. Interventional RX Recommendation: PCI w/o planned CABG Diagnostic RX Recommendation: PCI w/o planned CABG Anticoagulation: Heparin Ventriculography Ejection Fraction: 65.0 % LV EDP: 15 mmHg Left Ventriculography Findings: * Normal left ventricular size and systolic function. * Left ventriculogram was performed in SIOBHAN view. * EF 65 %, estimated. Pressures Phase:Rest AO : 116 / 73 ( 91 ) @ 9:29:00 AM 121 / 74 ( 93 ) @ 9:34:00 AM 141 / 79 ( 107 ) @ 9:47:00 AM 143 / 72 ( 107 ) @ 9:47:00 AM 122 / 70 ( 91 ) @ 10:06:00 AM 112 / 70 ( 88 ) @ 10:10:00 AM 115 / 69 ( 88 ) @ 10:16:00 AM 138 / 75 ( 100 ) @ 10:22:00 AM LV : 144 / -6 / 15 @ 9:46:00 AM 142 / -8 / 15 @ 9:47:00 AM 140 / -7 / 17 @ 9:47:00 AM Hemodynamic Findings LVEDP is 15 mmHg. No aortic valve gradient. Valves Phase:DefaultPhase AV : 0.0 @ 9:34:40 AM AV Mean Gradient: 0.0 @ 9:34:40 AM Clinical Evaluation EBL: 5mL-10mL Procedural Details Procedure Consent Obtained. Admit Source: In Patient. Pre-Procedure Time Out. Identified patient by full name and date of as verbalized by the patient/guarantor. Does the consent match the physician's order: Yes. Accurate & Complete Informed Consent: Yes. Inpatient/Outpatient History & Physical on Chart: Yes. If H&P is completed, is and addenduem needed: N/A; If yes, is the addendum complete: N/A. Visualize and Verify Site with Patient/Guarantor: N/A. Relevant Radiology Images available: N/A. Pre-op teaching completed and patient verbalized understanding. The risks, benefits, and alternatives of sedation and/or procedure were discussed by physician. The patient agrees to continue. Procedure started. [facility] Clinical Fraility Score: 3: Managing Well. Carbon Rod Inserter Indications: Worsening Angina. Chest Pain Symptom Assessment: Atypical Angina. Correct patient, site and procedure confirmed by cath team. Current diagnosis: Chest Pain. PERRLA. Strong, equal hand joint special operations bilaterally. Lungs clear x 5 lobes. IV Site on Arrival: 18 gauge in the left anticubital. IV Fluids: 0.9% NaCl at KVO. 50 mL infused prior to veterinarian laboratory animal care. Pre Procedural Pulses: right radial was 2+. Pre Procedural Pulses: bilateral dorsalis pedis was 2+. Oxygen started at 2liters/min via nasal canula. right groin was prepped with chloroprep then draped in the usual sterile fashion. right radial was prepped with chloroprep then draped in the usual sterile fashion. Physician notified. Physician arrived. Physician scrubbed in. Immediate Pre-Procedure Time Out. Correct Patient: Yes; Correct Procedure: Yes; Correct Site: Yes; Correct Patient Position: Yes; Correct Supplies: Yes; Dried Flammable Prep: Yes; Blood Products Available: N/A;. Lidocaine 1% infiltrated to the right radial. Arterial access obtained. A 6 guyanese TIG catheter in over wire. Multiple views taken of left coronary artery. Catheter redirected to the RCA. Multiple views taken of right coronary artery. Dr Portillo notified to review cath films. Catheter out. A 5 guyanese Angled Pig catheter in over wire. EDP Sample taken: LV 144/-7,15; HR: 75 BPM; SpO2: 91%. LV gram performed in [place]ON @ 10 mL/second for a total of 30 mL. EDP Sample taken: LV 142/-9,15; HR: 73 BPM; SpO2: 93%. Pullback taken: LV 140/-8,17; AO 141/79(107); Mean: 0mmHg, Peak to Peak: 0mmHg, SEP: 5sec/min; HR: 76 BPM; SpO2: 91%. Catheter out. Dr. Portillo scrubbed in to perform intervention. PCI Indication: NSTE. Dr Gandara scrubbed out. Patient's family updated. 6 guyanese JR 4 guide catheter was inserted over the wire. Guide catheter out. Radial access aborted d/t torturoisty. A TR Band was successful obtaining hemostatsis at the Right Radial artery insertion site. Lidocaine 1% infiltrated to the right groin. Arterial access obtained with micropuncture set. 6 guyanese JR 4 guide catheter was inserted over the wire. Runthrough guidewire was advanced through the guide catheter to lesion in the mid RCA. Balloon inserted to lesion in the mid RCA. Inflation number : 1 A AB TREK 2.50X12 RX BALLOON was prepped and advanced across the Mid RCA , then inflated to 6 MANUEL for 0:07 seconds. Inflation number: 2 The AB TREK 2.50X12 RX BALLOON was reinflated across the Mid RCA, to 12 MANUEL for 0:21 seconds. Balloon out. Results checked. Inflation Number : 3 A MDT R YOEL 3.5X15 MATT -Lot Number# [id number] Exp 01/02/2024 was prepped and advanced across the Mid RCA. The stent was deployed at 12 MANUEL for 0:20 seconds. Stent inserted to lesion in the mid RCA. Stent balloon out over wire. Results checked. Guide catheter out. 6 guyanese XB 3.5 guide catheter was inserted over the wire. ACT drawn. Results 218 seconds. Therapeutic limits - pre-heparin administration 90-150 seconds and monitoring heparin during a vascular procedure >250 seconds. Runthrough guidewire was advanced through the guide catheter to lesion in the prox LAD. Inflation number: 1 The AB TREK 2.50X12 RX BALLOON was reinflated across the Prox LAD, to 12 MANUEL for 0:18 seconds. Balloon inserted to lesion in the prox LAD. Balloon out. Results checked. Stent inserted to lesion in the prox LAD. Inflation Number : 2 A MDT R YOEL 3.5X15 MATT -Lot Number# [id number] Exp 10-13-2024 was prepped and advanced across the Prox LAD. The stent was deployed at 12 MANUEL for 0:22 seconds. Stent balloon out over wire. Results checked. Wire out. ACT drawn. Results 220 seconds. Therapeutic limits - pre-heparin administration 90-150 seconds and monitoring heparin during a vascular procedure >250 seconds. Guide catheter out. A Right femoral angiogram was performed to determine safe placement of closure device. A Angio-Seal VIP ([facility]) was successful obtaining hemostatsis at the Right Femoral artery insertion site. Lot number [id number]. Post Procedure: Pulses reassessed and unchanged. PERRLA. Strong, equal hand joint special operations bilaterally. No VTE prophylaxis required. Medication's Wasted: Heparin = 1000 u. Medication's Wasted: Nitro = 49.4 mg. Total IV fluids: 108 mL. Post-op diagnosis: Severe Obstructive CAD. Complications: none. Estimated blood loss: 5mL-10mL. Responsiveness - Normal response to verbal stimuli; alert and oriented, PERRLA. Airway - Unaffected, no intervention required; spontaneous ventilation. Circulation: W/N/L, pulses unchanged. Nausea/Vomiting: No. Procedure completed. Patient transferred by bed to 1st floor. Vital chart was stopped. Access Site Site: Right Radial artery Sheath Size: 6 Fr Hemostasis Method: TR Band Hemostasis Success: Successful Site: Right Femoral artery Sheath Size: 6 Fr Hemostasis Method: Angio-Seal VIP ([facility]) Hemostasis Success: Successful Procedure Medications Start: 8:17 AM Stop: 8:17 AM Medication: Versed Amount: 1 mg Route: I.V. Start: 8:17 AM Stop: 8:17 AM Medication: Fentanyl Amount: 25 mcg Route: I.V. Start: 8:17 AM Stop: 8:17 AM Medication: 0.9% Saline Amount: 75 ml/hr Route: I.V. drip Start: 8:26 AM Stop: 8:26 AM Medication: Nitrogylcerin Amount: 200 mcg Route: I.A. Start: 8:29 AM Stop: 8:29 AM Medication: Heparin Amount: 5000 units Route: I.V. Start: 8:34 AM Stop: 8:34 AM Medication: Fentanyl Amount: 25 mcg Route: I.V. Start: 8:37 AM Stop: 8:37 AM Medication: Versed Amount: 1 mg Route: I.V. Start: 8:38 AM Stop: 8:38 AM Medication: Nitrogylcerin Amount: 200 mcg Route: I.V. Start: 8:42 AM Stop: 8:42 AM Medication: Verapamil Amount: 5 mg Route: I.A. Start: 8:44 AM Stop: 8:44 AM Medication: Fentanyl Amount: 25 mcg Route: I.V. Start: 9:02 AM Stop: 9:02 AM Medication: Heparin Amount: 5000 units Route: I.V. Start: 9:09 AM Stop: 9:09 AM Medication: Nitrogylcerin Amount: 200 mcg Route: I.V. Start: 9:14 AM Stop: 9:14 AM Medication: Heparin Amount: 3000 units Route: I.V. Start: 9:25 AM Stop: 9:25 AM Medication: Heparin Amount: 2000 units Route: I.V. I, the attending physician, have reviewed and verified all procedure medications. Yes, all medications given per verbal order History/Risk Factors Hypertension: No Dyslipidemia: No Peripheral Arterial Disease (PAD): No Myocardial Infarction (ME): No Obesity: No Renal Disease: No Tobacco Use: Former Prior Interventions PCI: No CABG: No Valve Surgery: No Report Signatures Interventional Workflow Finalized by Ian Portillo MD on 03/12/2022 04:33 PM Diagnostic Workflow Finalized by Марина Gandara MD on 03/04/2022 11:15 PM
--- NOTE | 2022-02-26 08:17 | W.PM.OPSUD ---
Surgery/Procedure H&P Update DATE OF PROCEDURE: February 26, 2022 DATE H&P PERFORMED: 02/25/22 CHANGES TO PREVIOUS DOCUMENTATION: No changes to previous documentation PREOP DIAGNOSIS: NSTEMI PLANNED PROCEDURE: Operation Date: 02/26/22 10:00 Proposed Procedures p Cardiac Catheterization(Left) - Марина Gandara MD PATIENT REASSESSED PRIOR TO SEDATION, WITH NO CHANGE NOTED: Yes PHYSICAL EXAM: alert, oriented x 3, clear to auscultation bilaterally and regular rate & rhythm AIRWAY EVAL/ANESTHESIA PLAN: normal airway (Airway 2) and ASA III
--- NOTE | 2022-02-26 09:53 | PC.CHAP ---
Pastoral Care Encounter/Spiritual Assessment Type of Contact [] Declined geographical historian visit [] Patient/Family/Request visit [] Outpatient visit [] Follow-up visit [] Physician referral [] Code/Alert [x] Routine visit [] Staff referral [] Actively dying [] Patient sleeping [] Family support [] [x] Out of room [] Palliative care [] [] Receiving care in room [] Pre-surgical visit [] Trauma [] Long length of stay [] ICU visit [] Other: Relational/Emotional Strength [] Patient feels connected with others/family/visitors/staff [] Distress [] Loneliness/isolation [] Abandonment Spirituality of Patient [] Person of Annette [] Attends Bahai of their Annette [] Believes in Prayer [] Reads Bible or Shinto materials [] There are Spiritual issues to be addressed Fiscal Technician Interventions [x] Prayer [] Active listening [] Non-anxious presence [] Spiritual/emotional support [] Crisis/trauma care [] Spiritual counseling [] Bereavement support [] Provided bereavement packet [] Provided Bible/devotional materials [] Provided toy/stuffed animal, coloring book to patient or family member [] Provided Communion [] Anointing/[place] [] Salvation [x] Completed spiritual assessment [] Other: Impact on Illness or Injury [] Angry [] Fearful [] Anxious [] Often cries [] Exhaustion [] Unable to work [] Unable to attend religious [] Unable to walk/stand [] Unable to read [] Unable to drive [] Unable to eat/drink [] Unable to sleep [] Unable to be with family [] Patient intubated [] Other: Summary Time spent with patient
[2022-02-26] MEDS: clopidogrel 75 mg Tablet PO (10:02)
[2022-02-26] MEDS: pantoprazole DR 40 mg Tablet 20 MG PO (10:02)
[2022-02-26] MEDS: aspirin 81 mg EC Tablet PO (10:03)
[2022-02-26] MEDS: sennosides-docusate Tablet 1 TAB PO (10:03)
--- NOTE | 2022-02-26 11:39 | PC.NURSE ---
spoke with Dr. Mohr with patient concerns about not getting flowmax in the hospital instructions receive to start home dose of Flowmax PO 0.8 daliy first dose now
[2022-02-26] MEDS: tamsulosin 0.4 mg Capsule 0.8 MG PO (11:59)
--- NOTE | 2022-02-26 14:13 | P.PN_ITS ---
Subjective Subjective: The patient underwent cardiac catheterization. Received 2 stents. Official report is not available yet. The patient is doing well. Denies any active complaints. No chest pain or shortness of breath. No diaphoresis. Medications: Medication Review Details: Generic Name Dose Route Start Last Admin Trade Name Jessica PRN Reason Stop Dose Admin Aspirin 81 mg 02/25/22 09:00 02/26/22 10:03 Aspirin 81 Mg Ec Tablet PO 03/02/22 23:59 81 mg DAILY JEROD Administration Atorvastatin Calci um 80 mg 02/25/22 21:00 02/25/22 21:30 Atorvastatin 40 Mg Tablet PO 80 mg BEDTIME JEROD Administration Clopidogrel Bisulf ate 75 mg 02/25/22 15:10 02/26/22 10:02 Clopidogrel 75 M g Tablet PO 75 mg DAILY JEROD Administration Sodium Chloride 1,000 mls @ 50 ml s/hr 02/26/22 07:00 02/26/22 06:38 Sodium Chloride 0.9% IV 02/27/22 02:59 50 mls/hr .Q20H ONE Administration Nitroglycerin 0.5 inch 02/25/22 04:00 02/26/22 10:51 Nitroglycerin 1 Gm/Inch Oint Pkt TOPICAL Not Given Q6H JEROD Pantoprazole Sodiu m 20 mg 02/25/22 09:00 02/26/22 10:[address] 40 Mg Tablet PO 20 mg DAILY JEROD Administration Senna/Docusate Sod ium 1 tab 02/25/22 09:00 02/26/22 10:03 Sennosides-Docus ate Tablet PO 1 tab DAILY JEROD Administration Tamsulosin HCl 0.8 mg 02/26/22 11:39 02/26/22 11:59 Tamsulosin 0.4 M g Capsule PO 0.8 mg DAILY JEROD Administration Vitals/I&O/Wt Last Vital Signs Temp 97.1 F L 02/26/22 12:00 Pulse 67 02/26/22 13:45 Resp 20 H 02/26/22 13:45 BP 131/80 02/26/22 13:45 Pulse Ox 97 02/26/22 12:00 02/25/22 02/26/22 02/26/22 22:59 06:59 14:59 Intake Total 360 / 720 0 / 720 240 / 240 Output Total 400 / 400 Balance 360 / 720 0 / 720 -160 / -160 Physical Exam Narrative: The patient is awake alert oriented. No acute distress. Mood and affect are appropriate. Responses are adequate. Skin is warm and dry. Moist mucous Jo Neck supple. No JVD Lungs are clear to auscultation bilaterally. No wheezes or crackles Heart S1, S2, regular Abdomen soft, nontender, bowel sounds are present Extremities no edema cyanosis or calf tenderness bilaterally Neuro examination is nonfocal Normal speech Eyes PERRL, extraocular muscle intact Data : 02/26/22 03:10 02/26/22 03:10 A&P Assessment and plan (1) Sinus bradycardia: Status: Acute (2) NSTEMI (non-ST elevated myocardial infarction): Status: Acute (3) BPH (benign prostatic hyperplasia): Status: Acute Plan #NSTEMI #BPH ? EKG shows incomplete right bundle branch block ? Continue ACS protocol ? Lovenox 80 subcu twice daily ? Loaded with Plavix 300 mg in ER ? Atorvastatin 80 daily, aspirin 81 ? Hold off on beta-ludmila due to bradycardia ? Patient was initially ordered a stress test on admission. ? Consult cardiology. Will discuss with cardiology in regards to stress test versus angiogram for patient Daughter and grandchildren present at bedside. Full code DVT prophylaxis on full dose Lovenox at this time. [place] Non-ST elevation CT, coronary artery disease. Status postcardiac catheterization and stent placements. Currently on dual antiplatelet therapy. No beta-ludmila due to relative bradycardia. Continuing statin. BPH. Continue home Flomax. Dyslipidemia. Lipitor. DVT prophylaxis. On dual antiplatelet therapy. Continuing SCDs. Early am bulation. Possible discharge home soon The plan of care was discussed with the patient. He verbalized understanding and agreement. Discussed with the family. Discussed with multidisciplinary team. Attestations Medical Necessity Statement*: Probably home tomorrow Coding Level of Care Code Acute Insole Channeler for [facility] Fwd Diagnoses Sinus bradycardia R00.1 NSTEMI (non-ST elevated myocardial infarction) I21.4 BPH (benign prostatic hyperplasia) N40.0
[2022-02-26] MEDS: atorvastatin 40 mg Tablet 80 MG PO (21:34)
--- NOTE | 2022-02-27 02:58 | PC.NURSE ---
Pt lying in bed resting with eyes closed. Resp even and non-labored no distress or sob noted. Pts drsg to right groin dry and intact no swelling hematoma or bleeding noted. Pt had no c/o pain or discomfort at the present time. No needs voiced. at bedside. Call light in reach. Will continue to monitor.
[2022-02-27 03:26] VITALS: BP 139/83; PULSE 61; RESP 17; TEMP 36.2; O2SAT 96
[2022-02-27 04:58] VITALS: PULSE 59
[2022-02-27] MEDS: clopidogrel 75 mg Tablet PO (08:29)
[2022-02-27] MEDS: tamsulosin 0.4 mg Capsule 0.8 MG PO (08:29)
[2022-02-27] MEDS: pantoprazole DR 40 mg Tablet 20 MG PO (08:30)
[2022-02-27] MEDS: aspirin 81 mg EC Tablet PO (08:30)
[2022-02-27 08:34] VITALS: PULSE 66; RESP 16; O2SAT 98
[2022-02-27] MEDS: metoprolol succinate ER (24 HR) 25 mg Tablet 12.5 MG PO (10:11)
--- NOTE | 2022-02-27 10:20 | PM.DCS ---
Discharge Providers Date of Admission: 02/24/22 17:57 Date of Discharge: February 27, 2022 Attending Provider at Admission: Marisela Gloria MD Attending Provider at Discharge: David Mohr Primary Care Provider: Britt Zhang APN Diagnoses at Discharge Discharge Diagnosis (1) NSTEMI (non-ST elevated myocardial infarction): Status: Acute (2) Sinus bradycardia: Status: Acute (3) BPH (benign prostatic hyperplasia): Status: Acute Reason for Visit Reason for Visit: chest pain / left arm pain Hospital Course Hospital Course Discharge diagnosis and problem list Non-ST elevation [place], coronary artery disease.? Status postcardiac catheterization and stent placements.? Currently on dual antiplatelet therapy, statin.? No beta-ludmila due to relative bradycardia.? Hypertension. Starting amlodipine. Further adjustments to the blood pressure medications per primary care physician and primary rig site engineer. BPH.? Continue home Flomax. Dyslipidemia.? Lipitor. Currently the patient is doing well and is eager to go home. Denies chest pain, shortness of breath, diaphoresis, dizziness or lightheadedness, headache, muscle aches. He is instructed to come back to emergency room if he develops any of these symptoms or other symptoms. Will continue outpatient follow-up with rig site engineer and primary care physician The plan of care was discussed with the patient.? He verbalized understanding and agreement.? Discussed with the family. Discussed with multidisciplinary team. Physical Exam Narrative: The patient is awake alert oriented. No acute distress. Mood and affect are appropriate. Responses are adequate. Skin is warm and dry. Moist mucous Jo Neck supple. No JVD Lungs are clear to auscultation bilaterally. No wheezes or crackles Heart S1, S2, regular Abdomen soft, nontender, bowel sounds are present Extremities no edema cyanosis or calf tenderness bilaterally Neuro examination is nonfocal Normal speech Eyes PERRL, extraocular muscle intact Discharge Data Studies Completed and Pending Completed Studies During Hospitalization Category Date Time Status XR chest 1V portable [id number] Urgent Exams 02/24/22 13:40 Completed CV. echo complete* [id number] Routine Ultrasound 02/24/22 19:14 Completed US venous duplex lower extremity bilat [CV venous Ultrasound 02/24/22 19:14 [place] [id number]] Routine Pending at discharge Category Date Time Status CIVIL DRAFTING TECHNICIAN request for service Routine Exams 02/26/22 08:00 Taken Sestamibi Stress Test Request Routine Exams 02/24/22 19:14 Stop Req Radiology Impressions Chest X-Ray 02/24/22 13:40 IMPRESSION: No evidence of active cardiopulmonary disease. Laboratory Results WBC 8.0 10^3/uL (4.0-10.0) 02/26/22 03:10 RBC 4.50 10^6/uL (4.1-5.3) 02/26/22 03:10 Hgb 13.1 g/dL (11.7-16.6) 02/26/22 03:10 Hct 40.7 % (42.0-52.0) L 02/26/22 03:10 MCV 90.4 fl (80-94) 02/26/22 03:10 MCH 29.1 pg (28.0-34.0) 02/26/22 03:10 MCHC 32.2 g/dL (30.0-36.0) 02/26/22 03:10 RDW 12.4 % (12.1-15.1) 02/26/22 03:10 Plt Count 245 10^3/cmm (130-400) 02/26/22 03:10 MPV 9.7 fL (7.4-10.4) 02/26/22 03:10 Neut % (Auto) 59.6 % 02/26/22 03:10 Lymph % (Auto) 26.3 % 02/26/22 03:10 Latimer % (Auto) 11.9 % 02/26/22 03:10 Eos % (Auto) 1.8 % 02/26/22 03:10 Baso % (Auto) 0.3 % 02/26/22 03:10 Neut # (Auto) 4.76 10^3/uL (1.8-7.7) 02/26/22 03:10 Lymph # (Auto) 2.1 10^3/uL (0.8-4.8) 02/26/22 03:10 Latimer # (Auto) 1.0 10^3/uL (0.2-0.9) H 02/26/22 03:10 Eos # (Auto) 0.1 10^3/uL (0.0-0.8) 02/26/22 03:10 Baso # (Auto) 0.0 10^3/uL (0.0-0.1) 02/26/22 03:10 Nucleated RBC % (auto) 0 % 02/26/22 03:10 Nucleated RBCs # 0.0 /100WBC 02/26/22 03:10 D-Dimer 0.69 ug/mIFEU (0-0.59) H 02/24/22 13:41 Sodium 136 mmol/L (136-145) 02/26/22 03:10 Potassium 4.5 mmol/L (3.5-5.1) 02/26/22 03:10 Chloride 104 mmol/L (98-107) 02/26/22 03:10 Carbon Dioxide 25 mmol/L (22-29) 02/26/22 03:10 Anion Gap 11.5 (5-19) 02/26/22 03:10 BUN 13 mg/dL (8-23) 02/26/22 03:10 Creatinine 0.8 mg/dL (0.7-1.2) 02/26/22 03:10 GFR Calculation Not Reportable 02/26/22 03:10 Glucose 98 mg/dL (65-115) 02/26/22 03:10 Estimat Average Glucose 103 02/25/22 03:34 Hemoglobin A1c 5.2 % (4.0-6.0) 02/25/22 03:34 Calculated Osmolality 282 mOsm/kg (285-295) L 02/26/22 03:10 Calcium 8.9 mg/dL (8.5-10.5) 02/26/22 03:10 Magnesium 2.1 mg/dL (1.7-2.3) 02/26/22 03:10 Lactate Dehydrogenase 123 U/L (135-225) L 02/24/22 15:35 Creatine Kinase 42 U/L (39-308) 02/24/22 15:35 Troponin T Baseline 10 ng/L (0-15) 02/24/22 13:41 Troponin T 120 Minute 18.53 ng/L (0-15) H 02/24/22 15:35 Delta Troponin T 8.53 ABS# (0-10) 02/24/22 15:35 Troponin T Hi Sens 6Hr 92.07 ng/L (0-15) H 02/24/22 20:05 Troponin T Hi Sens 6Hr Delta 82.07 ng/L (0-12) H* 02/24/22 20:05 Triglycerides 164 mg/dL (0-150) H 02/25/22 03:34 Cholesterol 146 mg/dL (0-200) 02/25/22 03:34 LDL Cholesterol, Calc 86 mg/dL (50-129) 02/25/22 03:34 Total VLDL Cholesterol 33 mg/dL (0-30) H 02/25/22 03:34 HDL Cholesterol 27 mg/dL (60-100) L 02/25/22 03:34 Cholesterol/HDL Ratio 5.41 mg/dL (1.0-5.00) H 02/25/22 03:34 TSH 1.01 uIU/mL (0.27-4.20) 02/24/22 15:35 Vitals Last Vital Signs Temp 97.1 F L 02/27/22 03:26 Pulse 66 02/27/22 08:34 Resp 16 02/27/22 08:34 BP 139/83 02/27/22 03:26 Pulse Ox 98 02/27/22 08:34 Discharge Plan Discharge Patient Disposition: Home Condition: Stable Prescriptions: New atorvastatin 40 mg Tablet 40 mg PO BEDTIME Qty: 30 0RF clopidogrel 75 mg Tablet 75 mg PO DAILY Qty: 30 0RF aspirin 81 mg Tablet,Delayed Release (Dr/Ec) 81 mg PO DAILY Qty: 30 0RF acetaminophen 500 mg Tablet 500 mg PO Q4H PRN (Reason: fever) Qty: 30 0RF amlodipine 2.5 mg tablet 2.5 mg PO DAILY Qty: 30 0RF metoprolol succinate 25 mg capsule,sprinkle,ER 24hr 12.5 mg PO DAILY Qty: 15 6RF nitroglycerin 0.4 mg Tablet, Sublingual 0.4 mg sublingual Q5M PRN (Reason: Chest Pain) Qty: 20 3RF Continued omeprazole 40 mg capsule,delayed release(DR/EC) 40 mg PO DAILY 0RF tamsulosin 0.4 mg capsule 0.8 mg PO DAILY 0RF Discharge Orders: Discharge Order (Routine); Ordered 02/27/22 Ordered By: David Mohr Other Ambulatory Orders: Comprehensive Metabolic Panel (Routine) Timeframe: 1 Week Facility: [facility] - Location: Lab - Main Lab Ordered By: David Mohr Referrals: [place],Mirna, ASSISTANT DIRECTOR OF ADMISSIONS [Nurse Practitioner] - 7-10 days (Please follow-up with Mirna Davis on March 06 at 9:45A.M. If you have any questions or need to reschedule. Please call ) Марина Gandara MD [Physician] - 2 months (Please follow-up with Dr. Gandara on April 06 at 9:45A.M. If you have any questions or need to reschedule call ) Britt Zhang APN [Primary Care Provider] - (Please follow-up with Nikky Zhang on March 06 at 2:30P.M. If you have any questions or need to reschedule. Please call ) Discharge Diet: Cardiac, Low Cholesterol and Low Fat Discharge Activity: Resume usual activity Patient Instructions: Nitroglycerin (By mouth), Acetaminophen (By mouth), Amlodipine (By mouth), Atorvastatin (By mouth) (Lipitor), Clopidogrel (By mouth) (Plavix), Coronary Artery Disease (DC), Coronary Angioplasty (DC), Chest Pain Stoplight, Post Angiogram Home Care Instructions Activity Restrictions/Additional Instructions: Please come back to emergency room if you develop any new chest pain, diaphoresis, shortness of breath, dizziness or lightheadedness, muscle aches, bloody or dark urine, weakness, blood in the stool or black stools, or any other new complaints. Do not lift anything more than 5 lbs for 1 week. Keep the site dry and clean Take medications as prescribed and follow up as scheduled. Blood pressure and heart rate log x 2 weeks; Bring log with you for follow up. Discharge Attestations Time Spent in Discharge Care*: greater than 30 min Quality Metrics Clinical Quality Measures [ Acute Myocardial Infaction { Clinical Trial Participant: No; Contraindication to aspirin: None; Aspirin prescribed; Contraindication to statin: None; Statin prescribed; Contraindication to PCI: None; PCI performed;}] Coding Level of Care Code Acute Chg FW DC note Diagnoses NSTEMI (non-ST elevated myocardial infarction) I21.4 Sinus bradycardia R00.1 BPH (benign prostatic hyperplasia) N40.0
[2022-02-27 10:55] VITALS: BP 162/85; PULSE 66; RESP 16; O2SAT 98
--- NOTE | 2022-02-27 10:56 | PC.NURSE ---
Discharge Note Patient discharged to home via wheelchair accompanied by family. Discharge instructions reviewed with patient and/or security systems sales representative. Mobile pharmacy medications and/or prescriptions provided. Belongings/home medications returned.
--- NOTE | 2022-02-27 11:22 | P.PN_ITS ---
Subjective Subjective: Feels good. s/p C today. He was found to have severe stenosis in px LAD and mid RCA and underwent MATT placement X 2 Medications: Reviewed: Yes Medication Review Details: Generic Name Dose Route Start Last Admin Trade Name Jessica PRN Reason Stop Dose Admin Aspirin 81 mg 02/25/22 09:00 02/26/22 10:03 Aspirin 81 Mg Ec Tablet PO 03/02/22 23:59 81 mg DAILY JEROD Administration Atorvastatin Calci um 80 mg 02/25/22 21:00 02/25/22 21:30 Atorvastatin 40 Mg Tablet PO 80 mg BEDTIME JEROD Administration Clopidogrel Bisulf ate 75 mg 02/25/22 15:10 02/26/22 10:02 Clopidogrel 75 M g Tablet PO 75 mg DAILY JEROD Administration Sodium Chloride 1,000 mls @ 50 ml s/hr 02/26/22 07:00 02/26/22 06:38 Sodium Chloride 0.9% IV 02/27/22 02:59 50 mls/hr .Q20H ONE Administration Nitroglycerin 0.5 inch 02/25/22 04:00 02/26/22 10:51 Nitroglycerin 1 Gm/Inch Oint Pkt TOPICAL Not Given Q6H JEROD Pantoprazole Sodiu m 20 mg 02/25/22 09:00 02/26/22 10:[address] 40 Mg Tablet PO 20 mg DAILY JEROD Administration Senna/Docusate Sod ium 1 tab 02/25/22 09:00 02/26/22 10:03 Sennosides-Docus ate Tablet PO 1 tab DAILY JEROD Administration Tamsulosin HCl 0.8 mg 02/26/22 11:39 02/26/22 11:59 Tamsulosin 0.4 M g Capsule PO 0.8 mg DAILY JEROD Administration Vitals/I&O/Wt Last Vital Signs Temp 97.1 F L 02/27/22 03:26 Pulse 66 02/27/22 10:55 Resp 16 02/27/22 10:55 BP 162/85 02/27/22 10:55 Pulse Ox 98 02/27/22 10:55 02/26/22 02/27/22 02/27/22 22:59 06:59 14:59 Intake Total 236 / 476 1150 / 1626 236 / 236 Balance 236 / 76 1150 / 1226 236 / 236 Physical Exam Narrative: Gen: NAD HEENT: No pallor, icterus RS: CTAB/L; No wheezes or rales CVS: S1, S2 regular, No murmur, rub or gallop EXt: No edema, cyanosis or clubbing; 2+ DP and PT. 2+ radial , mild bruising at wrist; small knot at Right femoral access site. small hematoma ETHNOLOGY TEACHER: AAOx 3, No FND Skin: No rashes or lesions Const: COMMON NORMALS: alert Resp: COMMON NORMALS: clear to auscultation bilaterally AUSCULTATION: clear to auscultation bilaterally Neuro: SENSORIUM/ORIENTATION: Yes alert Data : 02/26/22 03:10 02/26/22 03:10 A&P Assessment and plan (1) NSTEMI (non-ST elevated myocardial infarction): Cardiac chest pain with increase in troponin from 10 to >90. -CAD risk factors of age, sex, h/o smoking and family h/o CAD -Iodine allergy (headache, ?rash); possibly tolerated contrast in past (unsure) -severe stenosis in px LAD and mid RCA and underwent MATT placement X 2; LVEDP of 15 -continue ASA, plavix, statin, NTG SL and low dose metoprolol -BP/HR log x 2 weeks -Follow up with Mirna in 1 week and with me in 2 months. -Agreed for cardiac rehab Status: Acute (2) BPH (benign prostatic hyperplasia): Status: Acute Plan Hyperlipidemia Former smoker Family h/o CAD Thank you for allowing me to participate in patient's care. Please feel free to call with questions or concerns Attestations Medical Necessity Statement*: Stable to be discharged. Coding Level of Care Code Acute Glass Setter for [facility] Fwd Diagnoses NSTEMI (non-ST elevated myocardial infarction) I21.4 BPH (benign prostatic hyperplasia) N40.0
== END 2022-02-27 10:57 | disposition home or self-care (01) ==
LOC: ER 14:30 → CSU 19:38
PROVIDERS: Internal Medicine; Internal Medicine Cardiovascular Disease; Admitting Provider Internal Medicine; Emergency Provider Emergency Medicine; PCP Nurse Practitioner Family; Visit Provider Internal Medicine
DX: I21.4 Non-ST elevation (NSTEMI) myocardial infarction (principal); R00.1 Bradycardia, unspecified; N40.0 Benign prostatic hyperplasia without lower urinary tract symptoms; I25.10 Atherosclerotic heart disease of native coronary artery without angina pectoris; I10 Essential (primary) hypertension; E78.5 Hyperlipidemia, unspecified; Z79.82 Long term (current) use of aspirin; Z87.891 Personal history of nicotine dependence; N40.1 Benign prostatic hyperplasia with lower urinary tract symptoms; N13.8 Other obstructive and reflux uropathy; R25.2 Cramp and spasm
CPT/HCPCS: 36415; 71045; 80048; 80061; 82550; 83036; 83615; 83735; 84443; 84484; 85025; 85347; 85378; 93005; 93306; 93452; 93458; 93970; 96372; 96374; 96375; 99285; C1725; C1760; C1769; C1874; C1887; C1894; C9600; C9601; G0378; J1200; J1644; J1650; J2250; J2920; J3010; J3490; J7030; Q9967

== ENCOUNTER → 2022-03-06 09:56 | Outpatient (BNVA) | payer MEDICARE, SELFPAY | PROVIDERS: PCP Nurse Practitioner Family; Visit Provider Nurse Practitioner Family | DX: Z09 Encounter for follow-up examination after completed treatment for conditions other than malignant neoplasm (principal); I25.810 Atherosclerosis of coronary artery bypass graft(s) without angina pectoris; Z98.61 Coronary angioplasty status; Z87.891 Personal history of nicotine dependence | CPT/HCPCS: 80048; 99213; 99214 ==

== ENCOUNTER 2022-03-18 19:02 | Emergency (ER) | payer MEDICARE, SELFPAY ==
--- NOTE | 2022-03-18 19:10 | USR_ITS ---
PROCEDURE INFORMATION: Exam: US Duplex Right Lower Extremity Veins, Limited Exam date and time: 03/18/2022 7:51 PM Age: 71 years old Clinical indication: Pain; Leg, upper; Right; Additional info: Leg pain, swelling, R/O dvt TECHNIQUE: Imaging protocol: Real-time Duplex ultrasound of the Right Lower Extremity with 2-D maria scale, color Doppler flow and spectral waveform analysis with image documentation. Limited exam was focused on the right lower extremity veins. COMPARISON: CT abdomen pelvis wo con [id number] 02/20/2018 12:13 AM FINDINGS: Right deep veins: Unremarkable. The common femoral, femoral, proximal profunda femoral and popliteal veins are patent without thrombus. Normal Doppler waveforms. Normal compressibility and/or augmentation response. Right superficial veins: Unremarkable. Saphenofemoral junction is patent without thrombus. Soft tissues: Unremarkable. US/[place] [id number] IMPRESSION: No evidence of deep vein thrombosis.
[2022-03-18 19:35] VITALS: BP 132/74; PULSE 67; RESP 18; TEMP 36.7; O2SAT 97
[2022-03-18 21:48] VITALS: BP 145/78; PULSE 65; RESP 16; O2SAT 99
--- NOTE | 2022-03-18 21:59 | XRR_ITS ---
PROCEDURE INFORMATION: Exam: XR Chest Exam date and time: 03/18/2022 10:12 PM Age: 71 years old Clinical indication: Prior surgery; Surgery date: 1-6 months; Surgery type: Stents; Patient HX: C/O fatigue and le swelling TECHNIQUE: Imaging protocol: XR of the chest. Views: 1 view. COMPARISON: CR (CHEST, ) 02/24/2022 1:47 PM FINDINGS: Lungs: Unremarkable. No consolidation. Pleural spaces: Unremarkable. No pleural effusion. No pneumothorax. Heart/Mediastinum: Unremarkable. No cardiomegaly. Bones/joints: No acute abnormality. XR/XR chest 1V portable [id number] IMPRESSION: No acute findings.
--- NOTE | 2022-03-18 22:00 | ECG_ITS ---
[facility] Test Date: 2022-03-18 Pat Name: Arturo Curry Department: Room: Gender: Male Manager Crisis: : 1950 Requested By: Lauro Morris Order Number: [id number] Nikolas MD: Vanesa Paz M.D. Measurements Intervals [place] Rate: 61 P: 67 MN: 189 QRS: -37 QRSD: 110 T: 55 QT: 401 QTc: 404 Interpretive Statements SINUS RHYTHM WITH OCCASIONAL SUPRAVENTRICULAR PREMATURE COMPLEXES LEFT AXIS DEVIATION [QRS AXIS < -30] INCOMPLETE RIGHT BUNDLE BRANCH BLOCK [90+ ms QRS DURATION, TERMINAL R IN V1/V2, 40+ ms S IN I/aVL/V4/V5/V6] Compared to ECG 02/25/2022 16:21:24 Left-axis deviation now present Left anterior fascicular block no longer present Electronically Signed On 03-18-2022 22:47:31 CDT by Vanesa Paz M.D. [id number]
--- NOTE | 2022-03-18 23:06 | W.ED.EXTPRO ---
HPI - Extremity Problem General: Chief complaint: Extremity Problem,Nontraumatic Stated complaint: Right leg pain an swelling Time Seen by Provider: 03/18/22 21:42 History of Present Illness: 71-year-old gentleman who had a heart cath 3 weeks ago. He has 2 distinct complaints today. The first is that of significant fatigue that developed around a week after his heart cath. He states the first couple of days after his heart cath he felt significantly improved than prior. He had energy. But a few days after starting his medication, he slowly began to get fatigue. Does not really complain of shortness of breath, just tiredness . He has not had any significant chest discomfort. The second complaint is that of inner right thigh pain. The right groin was accessed for his heart cath. He had no problems in the hospital following this with hemorrhage, pseudoaneurysm formation, etc. he notes that he had a knot to his inner thigh, that seems to have decreased in size over time. He still has some bruising to the lower inner thigh which is resolving as well. However, the pain remains. He states the inner thigh skin feels raw . He notes that there is a deeper pain, so much so that his leg almost gal when he puts weight on it MD Complaint: extremity pain and extremity swelling Onset (ago): day(s) Pain Consistency: constant Location: right Quality: burning, aching and crushing Radiation: proximal Relieving factors: nothing Exacerbating factors: weight bearing Associated symptoms: Deny chest pain, fever(s), myalgias or short of breath Context: recent surgery/procedure Review of Systems Const: Denies: fever(s) ENMT: Denies: throat pain Card: Denies: chest pain Resp: Denies: dyspnea, productive cough or non-productive cough GI: Denies: abdominal pain, nausea or vomiting : Denies: flank pain Musc: Denies: back pain PFS ED PFSH: Medical History BPH loc w urin obs/LUTS Hypotestosteronism Poliomyelitis Renal calculi Surgical History H/O foot surgery S/P cholecystectomy S/P hernia repair Family History Father , 72 Lung disease Social History Smoking and tobacco status: former smoker Alcohol intake: never Marital status: Current occupational status: retired and disabled Physical Exam Const: GENERAL APPEARANCE: cooperative and comfortable; not ill appearing HENMT: COMMON NORMALS: normocephalic, atraumatic and Normal external nose present HEAD & SCALP: normocephalic and atraumatic FACE & SINUS: normal transillumination of sinuses NOSE: Normal external nose present Eye: COMMON NORMALS: Equal, round and reactive pupils present and EOMs intact bilaterally PUPIL: Yes Equal, round and reactive pupils present Chest: COMMONS NORMALS: normal inspection of the chest CHEST: Yes Symmetrical chest wall rise Resp: COMMON NORMALS: normal respiratory effort, No use of accessory muscles and clear to auscultation bilaterally AUSCULTATION: clear to auscultation bilaterally Cardio: COMMON NORMALS: regular rate and regular rhythm RATE: regular rate RHYTHM: regular rhythm GI: COMMON NORMALS: Normal to inspection, nondistended, normoactive bowel sounds present, Soft to palpation and non-tender PALPATION: Yes Soft to palpation Extremity: NARRATIVE EXTREMITY EXAM: Examination of the right lower extremity reveals no significant palpable mass. There is no palpable swelling to the thigh. There is some ecchymosis to the distal third of the medial thigh. The thigh is not tight. It is tender to palpation mid medial thigh. Neuro: NELSON COMA SCALE: document GCS findings [place] coma scale eye opening: Spontaneous Nelson coma scale verbal response: Orientated Nelson coma scale motor response: Obey commands Nelson coma scale total score: 15 Skin: GENERAL SKIN EXAM: ecchymosis (Right distal medial thigh) Course Vital Signs: Vital signs: Vital Signs Temperature 98.0 F 03/18/22 19:35 Pulse Rate 65 03/18/22 21:48 Respiratory Rate 16 03/18/22 21:48 Blood Pressure 145/78 03/18/22 21:48 Pulse Oximetry 99 03/18/22 21:48 MDM - Extremity (Nontraumatic) Medical Decision Making CBC is normal. BMP is normal. Ultrasound for venous clot is negative, and soft tissues are not remarkable on ultrasound. No palpable significant mass on exam. He does have some tenderness. His CK level is normal given his recent statin prescription. Chest x-ray reveals no fluid overload. The patient has not had any chest pain, therefore troponin was not drawn. A BNP is only 128. He will be allowed discharge to follow-up with cardiology and his PCP. Lab Data : 03/18/22 22:57 03/18/22 22:57 Radiology Impressions Venous Duplex 03/18/22 19:10 IMPRESSION: No evidence of deep vein thrombosis. Chest X-Ray 03/18/22 21:59 IMPRESSION: No acute findings. Laboratory Results WBC 7.5 10^3/uL (4.0-10.0) 03/18/22 22:57 RBC 4.28 10^6/uL (4.1-5.3) 03/18/22 22:57 Hgb 12.6 g/dL (11.7-16.6) 03/18/22 22:57 Hct 37.5 % (42.0-52.0) L 03/18/22 22:57 MCV 87.6 fl (80-94) 03/18/22 22:57 MCH 29.4 pg (28.0-34.0) 03/18/22 22:57 MCHC 33.6 g/dL (30.0-36.0) 03/18/22 22:57 RDW 12.3 % (12.1-15.1) 03/18/22 22:57 Plt Count 265 10^3/cmm (130-400) 03/18/22 22:57 MPV 9.5 fL (7.4-10.4) 03/18/22 22:57 Neut % (Auto) 58.3 % 03/18/22 22:57 Lymph % (Auto) 26.6 % 03/18/22 22:57 Trinity % (Auto) 11.2 % 03/18/22 22:57 Eos % (Auto) 3.3 % 03/18/22 22:57 Baso % (Auto) 0.5 % 03/18/22 22:57 Neut # (Auto) 4.38 10^3/uL (1.8-7.7) 03/18/22 22:57 Lymph # (Auto) 2.0 10^3/uL (0.8-4.8) 03/18/22 22:57 Trinity # (Auto) 0.8 10^3/uL (0.2-0.9) 03/18/22 22:57 Eos # (Auto) 0.3 10^3/uL (0.0-0.8) 03/18/22 22:57 Baso # (Auto) 0.0 10^3/uL (0.0-0.1) 03/18/22 22:57 Nucleated RBC % (auto) 0 % 03/18/22 22:57 Nucleated RBCs # 0.0 /100WBC 03/18/22 22:57 Sodium 136 mmol/L (136-145) 03/18/22 22:57 Potassium 4.1 mmol/L (3.5-5.1) 03/18/22 22:57 Chloride 101 mmol/L (98-107) 03/18/22 22:57 Carbon Dioxide 26 mmol/L (22-29) 03/18/22 22:57 Anion Gap 13.1 (5-19) 03/18/22 22:57 BUN 11 mg/dL (8-23) 03/18/22 22:57 Creatinine 0.7 mg/dL (0.7-1.2) 03/18/22 22:57 GFR Calculation Not Reportable 03/18/22 22:57 Glucose 103 mg/dL (65-115) 03/18/22 22:57 Calculated Osmolality 282 mOsm/kg (285-295) L 03/18/22 22:57 Calcium 9.0 mg/dL (8.5-10.5) 03/18/22 22:57 Total Bilirubin 0.2 mg/dL (0.15-1.2) 03/18/22 22:57 AST 14 U/L (0-40) 03/18/22 22:57 ALT 17 U/L (0-41) 03/18/22 22:57 Alkaline Phosphatase 99 IU/L (40-130) 03/18/22 22:57 Creatine Kinase 35 U/L (39-308) L 03/18/22 22:57 NT-Pro-B Natriuret Pep 128 pg/mL (0-125) H 03/18/22 22:57 Total Protein 6.7 g/dL (6.6-8.7) 03/18/22 22:57 Albumin 3.6 g/dL (3.5-5.2) 03/18/22 22:57 Globulin 3.1 g/dL (1.3-4.6) 03/18/22 22:57 Discharge Plan Discharge Patient Disposition: Home Clinical Impression: Acute thigh pain, Fatigue Condition: Stable Prescriptions: No Action omeprazole 40 mg capsule,delayed release(DR/EC) 40 mg PO DAILY 0RF tamsulosin 0.4 mg capsule 0.8 mg PO DAILY 0RF atorvastatin 40 mg Tablet 40 mg PO BEDTIME Qty: 30 0RF clopidogrel 75 mg Tablet 75 mg PO DAILY Qty: 30 0RF aspirin 81 mg Tablet,Delayed Release (Dr/Ec) 81 mg PO DAILY Qty: 30 0RF acetaminophen 500 mg Tablet 500 mg PO Q4H PRN (Reason: fever) Qty: 30 0RF amlodipine 2.5 mg tablet 2.5 mg PO DAILY Qty: 30 0RF metoprolol succinate 25 mg capsule,sprinkle,ER 24hr 12.5 mg PO DAILY Qty: 15 6RF nitroglycerin 0.4 mg Tablet, Sublingual 0.4 mg sublingual Q5M PRN (Reason: Chest Pain) Qty: 20 3RF Discharge Orders: Discharge ED (Routine); Ordered 03/18/22 Ordered By: Lauro Infante Referrals: Vicente,Britt TIRE REPAIR MECHANIC [Primary Care Provider] - 1-3 days Discharge Diet: Cardiac Discharge Activity: Increase activity as tolerated Patient Instructions: Arthralgia (ED), Fatigue (ED) Activity Restrictions/Additional Instructions: See your doctor in follow-up next week. Keep your cardiology appointment as well. They may wish to do more outpatient testing. Return for worsening pain, weakness, chest discomfort, shortness of breath, any other concerning symptoms. Coding Level of Care Code ED Turbo Electric Operator for Alison Julio
[2022-03-18 23:10] LABS: Basophils % 0.5 %; Eosinophils # 0.3 10^3/uL (0.0-0.8); Eosinophils % 3.3 %; Hematocrit 37.5 % (42.0-52.0); Hemoglobin 12.6 g/dL (11.7-16.6); Lymphocytes % 26.6 %; Mean Corpuscular HGB Conc 33.6 g/dL (30.0-36.0); Mean Corpuscular Hemoglobin 29.4 pg (28.0-34.0); Mean Corpuscular Volume 87.6 fl (80-94); Mean Platelet Volume 9.5 fL (7.4-10.4); Monocytes # 0.8 10^3/uL (0.2-0.9); Monocytes % 11.2 %; Neutrophils # 4.38 10^3/uL (1.8-7.7); Neutrophils % 58.3 %; Nucleated Red Blood Cells % 0 %; Platelet Count 265 10^3/cmm (130-400); Red Blood Count 4.28 10^6/uL (4.1-5.3); Red Cell Distribution Width 12.3 % (12.1-15.1); White Blood Count 7.5 10^3/uL (4.0-10.0)
[2022-03-18 23:37] LABS: Alanine Aminotransferase 17 U/L (0-41); Albumin Level 3.6 g/dL (3.5-5.2); Alkaline Phosphatase 99 IU/L (40-130); Anion Gap 13.1 (5-19); Aspartate Amino Transferase 14 U/L (0-40); Blood Urea Nitrogen 11 mg/dL (8-23); Carbon Dioxide 26 mmol/L (22-29); Chloride 101 mmol/L (98-107); Creatine Phosphokinase 35 U/L (39-308); Globulin 3.1 g/dL (1.3-4.6); Glucose 103 mg/dL (65-115); NT Pro B Type Natriuretic Pept 128 pg/mL (0-125); Osmolality Calculated 282 mOsm/kg (285-295); Potassium 4.1 mmol/L (3.5-5.1); Sodium 136 mmol/L (136-145); Total Bilirubin 0.2 mg/dL (0.15-1.2); Total Protein 6.7 g/dL (6.6-8.7)
== END 2022-03-19 00:13 | disposition home or self-care (01) ==
PROVIDERS: Emergency Provider Emergency Medicine; PCP Nurse Practitioner Family
DX: M79.651 Pain in right thigh (principal); R53.83 Other fatigue; Z79.02 Long term (current) use of antithrombotics/antiplatelets; Z79.82 Long term (current) use of aspirin; Z87.891 Personal history of nicotine dependence
CPT/HCPCS: 71045; 80053; 82550; 83880; 85025; 93005; 93971; 99284

== ENCOUNTER → 2022-04-06 09:40 | Outpatient (BNVA) | payer MEDICARE, SELFPAY | PROVIDERS: PCP Nurse Practitioner Family; Visit Provider Internal Medicine Cardiovascular Disease | DX: I25.810 Atherosclerosis of coronary artery bypass graft(s) without angina pectoris (principal); I10 Essential (primary) hypertension; E78.5 Hyperlipidemia, unspecified; Z87.891 Personal history of nicotine dependence | CPT/HCPCS: 99214 ==

== ENCOUNTER → 2022-05-17 08:36 | Outpatient (BNVA) | payer MEDICARE, SELFPAY | PROVIDERS: PCP Nurse Practitioner Family; Visit Provider Urology | DX: Z12.5 Encounter for screening for malignant neoplasm of prostate (principal) | CPT/HCPCS: G0103 ==

== ENCOUNTER → 2022-05-24 10:49 | Outpatient (BNVA) | payer MEDICARE, SELFPAY | PROVIDERS: PCP Nurse Practitioner Family; Visit Provider Urology | DX: N20.0 Calculus of kidney (principal); N40.1 Benign prostatic hyperplasia with lower urinary tract symptoms | CPT/HCPCS: 81003; 99213 ==

== ENCOUNTER → 2022-08-03 08:54 | Outpatient (BNVA) | payer MEDICARE, SELFPAY | PROVIDERS: PCP Nurse Practitioner Family; Visit Provider Nurse Practitioner | DX: I25.810 Atherosclerosis of coronary artery bypass graft(s) without angina pectoris (principal); I10 Essential (primary) hypertension; E55.9 Vitamin D deficiency, unspecified | CPT/HCPCS: 80053; 80061; 81000; 82306; 82607; 84403; 84443; 85025 ==

== ENCOUNTER → 2022-09-12 11:23 | Outpatient (BNVA) | payer MEDICARE, SELFPAY | PROVIDERS: PCP Nurse Practitioner Family; Visit Provider Internal Medicine Cardiovascular Disease | DX: I25.10 Atherosclerotic heart disease of native coronary artery without angina pectoris (principal); Z78.9 Other specified health status; E78.5 Hyperlipidemia, unspecified; I10 Essential (primary) hypertension; Z95.5 Presence of coronary angioplasty implant and graft; Z87.891 Personal history of nicotine dependence | CPT/HCPCS: 99213 ==

== ENCOUNTER 2022-09-25 10:52 | Outpatient (CLI) | payer MEDICARE, SELFPAY ==
--- NOTE | 2022-09-25 10:45 | USCV_ITS ---
Arturo Curry Age: 71 Gender: M : 1950 Exam Date: 09/25/2022 11:08 Ordering Phys: Erlin Villanueva MD ([email or web address]) Technologist: CESAR [place] [facility] [place]: LEG PAIN Risk Factors: Previous Vascular Surgery: RIGHT LEFT BP: 146.0 / 81.00 BP: 153.0/ 93.00 0 0 Waveform Velocity (cm/s) Velocity (cm/s) Waveform Triphasic 110.0 Iliac Prox 106.3 Triphasic Triphasic 105.4 Iliac Mid 102.4 Triphasic Triphasic 120.1 Iliac Distal 122.2 Triphasic Triphasic 96.1 DATA ENTRY ANALYST 77.1 Triphasic Biphasic 105.8 SFA Prox 112.5 Biphasic Biphasic 100.3 SFA Mid 103.6 Biphasic Biphasic SFA Dist Biphasic 84.9 81.6 Biphasic 55.5 POP 52.3 Biphasic Biphasic 56.4 CONCRETE ANALYST 62.1 Biphasic Biphasic 53.8 DPA 74.6 Biphasic 0.8 BARRETT 0.7 FINDINGS Resting BARRETT of 0.8 on the right and 0.7 on the left Minimal plaques in the iliac and femoral arteries bilaterally Normal Doppler flow velocities bilaterally CONCLUSIONS Abnormal resting BARRETT s(0.8 on the right and 0.7 on the left ) suggesting mild peripheral artery disease on the right side and mild to moderate peripheral artery disease on the left side. Minimal plaques in the iliac and femoral arteries bilaterally Dr Vanesa Paz MD [facility] (Electronically Signed) Final Date: 27 September 2022 00:03 S
== END 2022-09-25 10:53 | disposition home or self-care (01) ==
LOC: RAD 10:53
PROVIDERS: PCP Nurse Practitioner Family; Visit Provider Internal Medicine Cardiovascular Disease
DX: M79.604 Pain in right leg (principal); M79.605 Pain in left leg
CPT/HCPCS: 93925

== ENCOUNTER → 2022-11-20 13:14 | Outpatient (BNVA) | payer MEDICARE, SELFPAY | PROVIDERS: PCP Nurse Practitioner Family; Visit Provider Internal Medicine Cardiovascular Disease | DX: I25.10 Atherosclerotic heart disease of native coronary artery without angina pectoris (principal); Z95.5 Presence of coronary angioplasty implant and graft; Z78.9 Other specified health status; N40.0 Benign prostatic hyperplasia without lower urinary tract symptoms; I10 Essential (primary) hypertension; E78.5 Hyperlipidemia, unspecified; Z87.891 Personal history of nicotine dependence | CPT/HCPCS: 99214 ==

== ENCOUNTER 2023-03-20 08:52 | Emergency (ER) | payer MEDICARE, OTHER, SELFPAY ==
--- NOTE | 2023-03-20 08:55 | XRR_ITS ---
PROCEDURE INFORMATION: Exam: XR Chest Exam date and time: 03/20/2023 9:14 AM Age: 72 years old Clinical indication: Pain; Angina pectoris; Prior surgery; Surgery date: 6+ months; Surgery type: Stents; Additional info: Cp TECHNIQUE: Imaging protocol: Radiologic exam of the chest. Views: 1 view. COMPARISON: CR XR chest 1V portable [id number] 03/18/2022 10:12 PM FINDINGS: Lungs: Maximal inspiratory volume or hyperinflation. Pleural spaces: Unremarkable. No pleural effusion. No pneumothorax. Heart/Mediastinum: Similar triangular lingular opacity probably reflective of epicardial fat pad. Vasculature: Calcified thoracic aorta. Bones/joints: Degenerative change of the spine. XR/XR chest 1V portable [id number] IMPRESSION: No acute cardiopulmonary process.
--- NOTE | 2023-03-20 09:02 | ECG_ITS ---
[facility] Test Date: 2023-03-20 Pat Name: Arturo Curry Department: Room: Gender: Male Laborer Beam House: : 1950 Requested By: Arturo Covarrubias Order Number: [id number] Nikolas MD: Vanesa Paz M.D. Measurements Intervals [place] Rate: 67 P: 92 MO: 171 QRS: -46 QRSD: 96 T: 80 QT: 379 QTc: 401 Interpretive Statements SINUS RHYTHM WITH OCCASIONAL VENTRICULAR PREMATURE COMPLEXES LEFT ANTERIOR FASCICULAR BLOCK [QRS AXIS <= -45, QR IN I, RS IN II] Compared to ECG 03/18/2022 22:08:40 Ventricular premature complex(es) now present Left anterior fascicular block now present Left-axis deviation no longer present Incomplete right bundle-branch block no longer present Electronically Signed On 03-20-2023 21:00:42 CDT by Vanesa Paz M.D. [id number]
[2023-03-20 09:10] VITALS: BMI 26.0
[2023-03-20 09:14] VITALS: BP 158/85; PULSE 64; RESP 18; TEMP 36.6; O2SAT 97
[2023-03-20 09:17] LABS: Basophils # 0.1 10^3/uL (0.0-0.1); Basophils % 0.7 %; Eosinophils # 0.1 10^3/uL (0.0-0.8); Eosinophils % 1.9 %; Hematocrit 41.8 % (42.0-52.0); Hemoglobin 13.2 g/dL (11.7-16.6); Lymphocytes # 2.2 10^3/uL (0.8-4.8); Lymphocytes % 30.8 %; Mean Corpuscular HGB Conc 31.6 g/dL (30.0-36.0); Mean Corpuscular Hemoglobin 28.1 pg (28.0-34.0); Mean Corpuscular Volume 89.1 fl (80-94); Mean Platelet Volume 9.3 fL (7.4-10.4); Monocytes # 0.7 10^3/uL (0.2-0.9); Monocytes % 9.3 %; Neutrophils # 4.12 10^3/uL (1.8-7.7); Nucleated Red Blood Cells % 0 %; Platelet Count 370 10^3/cmm (130-400); Red Blood Count 4.69 10^6/uL (4.1-5.3); Red Cell Distribution Width 12.8 % (12.1-15.1); White Blood Count 7.2 10^3/uL (4.0-10.0)
[2023-03-20 09:34] LABS: Troponin(5th) Baseline 10 ng/L (0-15)
[2023-03-20 09:49] LABS: Alanine Aminotransferase 26 U/L (0-41); Albumin Level 3.9 g/dL (3.5-5.2); Alkaline Phosphatase 136 U/L (40-130); Aspartate Amino Transferase 18 U/L (0-40); Blood Urea Nitrogen 13 mg/dL (8-23); Calcium 9.3 mg/dL (8.5-10.5); Carbon Dioxide 30 mmol/L (22-29); Chloride 100 mmol/L (98-107); Globulin 2.4 g/dL (1.3-4.6); Glucose 91 mg/dL (65-115); NT Pro B Type Natriuretic Pept 112 pg/mL (0-125); Osmolality Calculated 288 mOsm/kg (285-295); Sodium 139 mmol/L (136-145); Total Bilirubin 0.3 mg/dL (0.15-1.2); Total Protein 6.3 g/dL (6.6-8.7)
--- NOTE | 2023-03-20 09:59 | W.ED.CHESTPA ---
HPI - Chest Pain General: Chief Complaint: Chest Pain Stated Complaint: Chest Pain Time Seen by Provider: 03/20/23 09:02 Source: patient Mode of arrival: ambulatory History of Present Illness: 72-year-old male presents emergency room complaining of chest pain. He had chest pain this morning that began shortly after he ate and had been sitting in his kitchen table when he got up he had a full sensation in the lower portion of his chest at the midline. There is no radiation of discomfort he had no diaphoresis or shortness of breath associated with it lasted about 20 minutes and then resolved when he was in route to the hospital then began again he is pain-free at the time he is being seen he has a known history of coronary artery disease and had 2 stents placed approximately a year ago. MD complaint: chest pain Onset (ago): hour(s) Timing of current episode: episodic Onset: during rest Pain location: substernal Pain radiation: none Relieving factors: nothing Exacerbating factors: nothing Associated symptoms: Deny abdominal pain, dyspnea, fever(s), nausea or vomiting Review of Systems Const: Denies: fever(s), chills, body aches, change in appetite, fatigue or malaise ENMT: Denies: throat pain, ear or mastoid pain, nasal discharge or nasal congestion Card: Denies: chest pain, edema, dyspnea on exertion or orthopnea Resp: Denies: dyspnea, productive cough or non-productive cough GI: Denies: abdominal pain, nausea, vomiting, hematemesis, coffee ground emesis, diarrhea, constipation, bloating, hematochezia or melena : Denies: flank pain, dysuria, urinary frequency or urinary urgency Skin/Breast: Denies: rash or pruritus PFSH ED PFSH: Medical History BPH loc w urin obs/LUTS CAD (coronary artery disease) Dyslipidemia HTN (hypertension) Hypotestosteronism Poliomyelitis age 1 Renal calculi Statin intolerance Surgical History H/O foot surgery History of colonoscopy with polys History of coronary artery stent placement February 2022 at [facility] History of hip surgery [place], [place] S/P cholecystectomy S/P hernia repair Bilateral Family History Father , 72 Lung disease Social History Smoking and tobacco status: former smoker Second hand smoke exposure: No Smoking risk assessment/counseling performed?: No Alcohol intake: never Desire information about alcohol rehabilitation?: No Counseling given: No Substance/Drug Use: never Desire information about substance/drug rehabilitation?: No Counseling given: No Adopted: No Caregiver/support person: No Lives independently: Yes Household members: spouse Housing: House Marital status: Number of children: 3 Highest education level completed: High School Graduate service: No Current occupational status: retired and disabled Current occupation: Semi Pets and animals: Yes Do you think of yourself as: Straight/Heterosexual Current gender identity: Male Physical Exam Const: GENERAL APPEARANCE: cooperative and comfortable ORIENTATION/CONSCIOUSNESS: Yes awake, Yes oriented to person, Yes oriented to place and Yes oriented to time HENMT: COMMON NORMALS: normocephalic, atraumatic and hearing grossly normal bilaterally HEAD & SCALP: normocephalic and atraumatic Resp: COMMON NORMALS: normal respiratory effort, No retractions, No use of accessory muscles and clear to auscultation bilaterally AUSCULTATION: clear to auscultation bilaterally Cardio: COMMON NORMALS: regular rate, regular rhythm and No murmurs present (Cardio) RATE: regular rate RHYTHM: regular rhythm GI: COMMON NORMALS: Soft to palpation and No hepatosplenomegaly present AUSCULTATION: Yes normoactive bowel sounds PALPATION: Yes Soft to palpation, No Tenderness to palpation present (GI), No Guarding due to palpation present (GI) and Yes No hepatosplenomegaly present Extremity: COMMON NORMALS: normal to inspection, capillary refill normal, no clubbing, cyanosis or edema, no calf tenderness and no pedal edema Neuro: SENSORIUM/ORIENTATION: Yes oriented to person, Yes oriented to place and Yes oriented to time Skin: COMMON NORMALS: no rashes or lesions noted GENERAL SKIN EXAM: no rashes or lesions noted Course Vital Signs: Vital signs: Vital Signs Temperature 97.8 F 03/20/23 09:14 Pulse Rate 67 03/20/23 12:27 Respiratory Rate 16 03/20/23 12:27 Blood Pressure 158/85 03/20/23 09:14 Pulse Oximetry 97 03/20/23 12:27 MDM - Chest Pain Medical Decision Making EKG no acute ST changes. Troponins trending normal. Patient has had no further chest pain since arriving here. Reviewed his previous cardiac cath he had 2 solitary lesions both of which were stented. He has not had any symptoms since then. States he is feeling better and he like to go home and think is reasonable to treat him as an outpatient at this point we will start him isosorbide mononitrate 30 mg once a day. Continue his other medications and we will set him up for an outpatient Lexiscan sestamibi stress test if he has worsening or change symptoms she should return immediately to the emergency room Medical Records I reviewed the patient's medical records. Lab Data I reviewed the patient's lab results. 03/20/23 09:10 03/20/23 09:10 Radiology Impressions Chest X-Ray 03/20/23 08:55 IMPRESSION: No acute cardiopulmonary process. Laboratory Results WBC 7.2 10^3/uL (4.0-10.0) 03/20/23 09:10 RBC 4.69 10^6/uL (4.1-5.3) 03/20/23 09:10 Hgb 13.2 g/dL (11.7-16.6) 03/20/23 09:10 Hct 41.8 % (42.0-52.0) L 03/20/23 09:10 MCV 89.1 fl (80-94) 03/20/23 09:10 MCH 28.1 pg (28.0-34.0) 03/20/23 09:10 MCHC 31.6 g/dL (30.0-36.0) 03/20/23 09:10 RDW 12.8 % (12.1-15.1) 03/20/23 09:10 Plt Count 370 10^3/cmm (130-400) 03/20/23 09:10 MPV 9.3 fL (7.4-10.4) 03/20/23 09:10 Neut % (Auto) 57.0 % 03/20/23 09:10 Lymph % (Auto) 30.8 % 03/20/23 09:10 Republic % (Auto) 9.3 % 03/20/23 09:10 Eos % (Auto) 1.9 % 03/20/23 09:10 Baso % (Auto) 0.7 % 03/20/23 09:10 Neut # (Auto) 4.12 10^3/uL (1.8-7.7) 03/20/23 09:10 Lymph # (Auto) 2.2 10^3/uL (0.8-4.8) 03/20/23 09:10 Republic # (Auto) 0.7 10^3/uL (0.2-0.9) 03/20/23 09:10 Eos # (Auto) 0.1 10^3/uL (0.0-0.8) 03/20/23 09:10 Baso # (Auto) 0.1 10^3/uL (0.0-0.1) 03/20/23 09:10 Nucleated RBC % (auto) 0 % 03/20/23 09:10 Nucleated RBCs # 0.0 /100WBC 03/20/23 09:10 Sodium 139 mmol/L (136-145) 03/20/23 09:10 Potassium 4.0 mmol/L (3.5-5.1) 03/20/23 09:10 Chloride 100 mmol/L (98-107) 03/20/23 09:10 Carbon Dioxide 30 mmol/L (22-29) H 03/20/23 09:10 Anion Gap 13.0 (5-19) 03/20/23 09:10 BUN 13 mg/dL (8-23) 03/20/23 09:10 Creatinine 1.0 mg/dL (0.7-1.2) 03/20/23 09:10 GFR Calculation Not Reportable 03/20/23 09:10 Glucose 91 mg/dL (65-115) 03/20/23 09:10 Calculated Osmolality 288 mOsm/kg (285-295) 03/20/23 09:10 Calcium 9.3 mg/dL (8.5-10.5) 03/20/23 09:10 Total Bilirubin 0.3 mg/dL (0.15-1.2) 03/20/23 09:10 AST 18 U/L (0-40) 03/20/23 09:10 ALT 26 U/L (0-41) 03/20/23 09:10 Alkaline Phosphatase 136 U/L (40-130) H 03/20/23 09:10 Troponin T Baseline 10 ng/L (0-15) 03/20/23 09:10 Troponin T 120 Minute 8.99 ng/L (0-15) 03/20/23 11:02 Delta Troponin T 1.01 ABS# (0-10) 03/20/23 11:02 NT-Pro-B Natriuret Pep 112 pg/mL (0-125) 03/20/23 09:10 Total Protein 6.3 g/dL (6.6-8.7) L 03/20/23 09:10 Albumin 3.9 g/dL (3.5-5.2) 03/20/23 09:10 Globulin 2.4 g/dL (1.3-4.6) 03/20/23 09:10 Discharge Plan Discharge Patient Disposition: Home Clinical Impression: Atypical chest pain Condition: Stable Prescriptions: New isosorbide mononitrate 30 mg tablet extended release 24 hr 30 mg PO DAILY Qty: 30 0RF No Action omeprazole 40 mg capsule,delayed release(DR/EC) 40 mg PO BID tamsulosin 0.4 mg capsule 0.8 mg PO DAILY clopidogrel 75 mg tablet 75 mg PO DAILY Qty: 90 3RF famotidine 40 mg Tablet 40 mg PO DAILY doxepin 10 mg Capsule 10 mg PO BID nitroglycerin 0.4 mg Tablet, Sublingual 0.4 mg sublingual Q5M PRN (Reason: Chest Pain) Qty: 20 3RF Discharge Orders: Discharge ED (Routine); Ordered 03/20/23 Ordered By: Jesse Ma Referrals: Zhang,KORTNEY De La Torre [Primary Care Provider] - Discharge Diet: Usual diet Discharge Activity: Resume usual activity Patient Instructions: Opioid Safety, Pain Management Activity Restrictions/Additional Instructions: You were seen today for an episode of chest discomfort cardiac enzymes and EKG were unremarkable. Your previous angiography was reviewed. The 2 lesions that were present at time of angiography were both stented. Recommend that you get an outpatient Lexiscan sestamibi stress test. Additionally continue current medications and start isosorbide mononitrate 30 mg once daily follow-up with your special investigation unit investigator after the stress test is completed. Return to the emergency room if further problems. Coding Level of Care Code ED Dna Analyst for Alison Julio
[2023-03-20 10:00] VITALS: PULSE 59; RESP 18; O2SAT 98
--- NOTE | 2023-03-20 10:56 | ECG_ITS ---
[facility] Test Date: 2023-03-20 Pat Name: Arturo Curry Department: Room: Gender: Male Outreach Professional: : 1950 Requested By: Arturo Covarrubias Order Number: [id number] Nikolas MD: Erlin Villanueva M.D. Measurements Intervals [employer] Rate: 56 P: 96 MI: 184 QRS: -17 QRSD: 98 T: 73 QT: 399 QTc: 388 Interpretive Statements SINUS BRADYCARDIA Compared to ECG 03/20/2023 09:02:34 Sinus rhythm no longer present Ventricular premature complex(es) no longer present Left anterior fascicular block no longer present Electronically Signed On 03-21-2023 14:05:49 CDT by Erlin Villanueva M.D. [id number]
[2023-03-20 11:00] VITALS: PULSE 68; RESP 16; O2SAT 98
[2023-03-20 11:38] LABS: Troponin 5 2HR 8.99 ng/L (0-15)
[2023-03-20 11:48] LABS: Troponin 5 2HR Delta 1.01 ABS# (0-10)
[2023-03-20 12:27] VITALS: PULSE 67; RESP 16; O2SAT 97
--- NOTE | 2023-03-20 13:03 | DCPLANNER ---
Addendum entered by Shweta Alonso 06/27/23 12:14: This was cancelled Original Note: manager pediatric had message to schedule an outpatient stress test for patient. manager pediatric faxed signed order to centralized scheduling, who will call patient with appointment information.
== END 2023-03-20 12:28 | disposition home or self-care (01) ==
PROVIDERS: Physician Assistant; Emergency Provider Family Medicine; PCP Nurse Practitioner Family
DX: R07.89 Other chest pain (principal); Z79.02 Long term (current) use of antithrombotics/antiplatelets; Z87.891 Personal history of nicotine dependence; I25.10 Atherosclerotic heart disease of native coronary artery without angina pectoris; E78.5 Hyperlipidemia, unspecified; I10 Essential (primary) hypertension
CPT/HCPCS: 36415; 71045; 80053; 83880; 84484; 85025; 93005; 99285

== ENCOUNTER → 2023-06-04 12:47 | Outpatient (BNVA) | payer MEDICARE, OTHER, SELFPAY | PROVIDERS: PCP Nurse Practitioner Family; Visit Provider Internal Medicine | DX: I25.10 Atherosclerotic heart disease of native coronary artery without angina pectoris (principal); Z78.9 Other specified health status; E78.5 Hyperlipidemia, unspecified; I10 Essential (primary) hypertension; Z87.891 Personal history of nicotine dependence | CPT/HCPCS: 99214 ==

== ENCOUNTER 2023-06-12 06:52 | Outpatient (CLI) | payer MEDICARE, OTHER, SELFPAY ==
--- NOTE | 2023-06-12 07:00 | USCV_ITS ---
Arturo Curry Age: 72 Gender: M : 1950 Exam Date: 06/12/2023 07:21 Ordering Phys: Ian Portillo M.D ([email or web address]) Technologist: BIANCA Exam Location: [facility] [place] Indication: Stenosis Risk Factors: Previous Vascular Surgery: Right Brachial BP: / Left Brachial BP: / Right Left Velocity (cm/s) Spectral Plaque Velocity (cm/s) Spectral Plaque Syst/Diast Broadening Syst/Diast Broadening 83.90/ 24.90 Prox CCA 128.10/ 22.30 88.40/ 23.50 Mid CCA 113.10/ 26.30 83.10/ 26.40 Distal CCA 111.00/ 32.60 82.30/ 22.50 Prox ICA 50.80 / 20.00 78.50/ 30.80 Mid ICA 107.70/ 33.30 113.40/35.50 Distal ICA 88.00 / 35.00 79.20 ECA 83.70 1.28 ICA/CCA 0.84 Antegrade Vertebral Antegrade 49.70/ 16.00 cm/s 51.30/ 16.20 cm/s Tri Subclavian Bi 64.40 88.90 FINDINGS Comparison: none available. No significant elevation of systolic or diastolic velocities. Waveforms are normal. Mixture of calcified and noncalcified plaque in the bifurcations, mild. Antegrade vertebral arteries. CONCLUSIONS Bilateral ICA stenosis less than 50%. Mild carotid atherosclerosis. Dr. Belkis Rojo DO (Electronically Signed) Final Date: 12 June 2023 09:16 S
== END 2023-06-12 06:53 | disposition home or self-care (01) ==
PROVIDERS: PCP Nurse Practitioner Family; Visit Provider Internal Medicine
DX: I65.23 Occlusion and stenosis of bilateral carotid arteries (principal)
CPT/HCPCS: 93880

== ENCOUNTER 2023-11-09 12:07 | Observation (INO) | payer MEDICARE, OTHER, SELFPAY ==
[2023-11-09] VITALS (85 sets, daily range): BP systolic 115–171; BP diastolic 69–92; PULSE 54–105; RESP 12–30; TEMP 36.7–37.2; O2SAT 91–100; BMI 26.0
[2023-11-09 12:21] LABS: Glucose Point of Care 148 mg/dL (70-110)
--- NOTE | 2023-11-09 12:23 | XRR_ITS ---
PROCEDURE INFORMATION: Exam: XR Chest Exam date and time: 11/09/2023 12:34 PM Age: 73 years old Clinical indication: Other: HTN TECHNIQUE: Imaging protocol: Radiologic exam of the chest. Views: 1 view. COMPARISON: CR XR chest 1V portable [id number] 03/20/2023 9:14 AM FINDINGS: Lungs: Unremarkable. No consolidation. Pleural spaces: Unremarkable. No pleural effusion. No pneumothorax. Heart/Mediastinum: Unremarkable. No cardiomegaly. Bones/joints: Left shoulder replacement. XR/XR chest 1V portable [id number] IMPRESSION: No acute findings.
--- NOTE | 2023-11-09 12:23 | CTR_ITS ---
PROCEDURE INFORMATION: Exam: CT Head Without Contrast Exam date and time: 11/09/2023 12:30 PM Age: 73 years old Clinical indication: Other: Intermittent confusion and dysarthria TECHNIQUE: Imaging protocol: Computed tomography of the head without contrast. Radiation optimization: All CT scans at this facility use at least one of these dose optimization techniques: automated exposure control; mA and/or kV adjustment per patient size (includes targeted exams where dose is matched to clinical indication); or iterative reconstruction. REPORTING DATA: Count of CT and Cardiac NM exams in prior 12 months: This patient has received 0 known CTs and 0 known cardiac nuclear medicine studies in the 12 months prior to the current study. COMPARISON: MR cervical spine wo/w [id number] 05/21/2019 2:20 PM RADIATION DOSE METRICS: Total DLP (mGy-cm): 1235.14 FINDINGS: Brain: Prominent perivascular space inferior margin left basal ganglia. Arachnoid cyst versus robby cisterna magna midline posterior fossa. No midline shift. No mass, acute infarct, hemorrhage, or extra-axial fluid collection. Cerebral ventricles: No ventriculomegaly. Paranasal sinuses: Visualized sinuses are unremarkable. No fluid levels. Mastoid air cells: Visualized mastoid air cells are well aerated. Bones/joints: Unremarkable. No acute fracture. Soft tissues: Unremarkable. CT/CT head wo con* [id number] IMPRESSION: No acute intracranial abnormality.
--- NOTE | 2023-11-09 12:24 | ECG_ITS ---
[facility] Test Date: 2023-11-09 Pat Name: Arturo Curry Department: Room: Gender: Male Directional Driller: : 1950 Requested By: Kendall Holley Order Number: [id number] Nikolas MD: Ian Portillo M.D. Measurements Intervals [place] Rate: 63 P: -77 OK: 146 QRS: -48 QRSD: 109 T: 56 QT: 382 QTc: 393 Interpretive Statements ECTOPIC ATRIAL RHYTHM WITH OCCASIONAL SUPRAVENTRICULAR PREMATURE COMPLEXES INCOMPLETE RIGHT BUNDLE BRANCH BLOCK [90+ ms QRS DURATION, TERMINAL R IN V1/V2, 40+ ms S IN I/aVL/V4/V5/V6] LEFT ANTERIOR FASCICULAR BLOCK [QRS AXIS <= -45, QR IN I, RS IN II] Compared to ECG 03/20/2023 11:00:45 Ectopic atrial rhythm now present Incomplete right bundle-branch block now present Left anterior fascicular block now present Sinus bradycardia no longer present Electronically Signed On 11-09-2023 13:31:06 WASTEWATER MANAGER by Ian Portillo M.D. [id number]
--- NOTE | 2023-11-09 13:12 | ED_ITS ---
HPI - Neuro Symptoms/Deficit 2 General: Chief Complaint: Neuro Symptoms/Deficit Stated Complaint: slurred speech, headache Time Seen by Provider: 11/09/23 12:17 History of Present Illness: Patient presented to the ER with complaints of headache and intermittent ability to not be able to finish words or sentences. Patient was talking on the phone to his friends and he just started talking gibberish that made no sense he knew what he was doing but he could not get the right words out. Patient's last known well was approximate 1120 on his phone call. During triage patient had to be redirected and orientated multiple times for losing train of thought. Patient denies any trauma and is not on any blood thinners. Patient has had cardiac stents placed approximately a year ago here at [facility]. Patient is never had this before. Review of Systems 2 General: Reports: 10 or more systems reviewed and unremarkable except in HPI and below PFSH ED 2 PFSH: Medical History CAD (coronary artery disease) Statin intolerance HTN (hypertension) Dyslipidemia Poliomyelitis age 1 Hypotestosteronism Renal calculi BPH loc w urin obs/LUTS Surgical History History of hip surgery Left [place], [place] History of colonoscopy with polys History of coronary artery stent placement February 2022 at [facility] S/P cholecystectomy H/O foot surgery S/P hernia repair Bilateral Family History Father , 72 Lung disease Social History Smoking and tobacco/nicotine status: former use of tobacco/nicotine Second hand smoke exposure: No Alcohol intake: never Substance/Drug Use: never Adopted: No Caregiver/support person: No Lives independently: Yes Household members: spouse Housing: House Marital status: Number of children: 3 Highest education level completed: High School Graduate service: No Current occupational status: retired and disabled Current occupation: Semi Pets and animals: Yes Do you think of yourself as: Straight/Heterosexual Current gender identity: Male Physical Exam 2 Const: COMMON NORMALS: no acute distress, average body habitus, patient oriented x3, no limitations, healthy appearing, alert and well nourished HENMT: COMMON NORMALS: normocephalic, atraumatic, hearing grossly normal bilaterally, external ears normal, Normal external nose present, moist oral mucous membranes and oropharynx normal HEAD & SCALP: normocephalic and atraumatic NOSE: Normal external nose present EXTERNAL EAR: Yes external ears normal Eye: COMMON NORMALS: Equal, round and reactive pupils present, EOMs intact bilaterally, conjunctivae normal and no scleral icterus CONJUNCTIVA: Yes conjunctivae normal PUPIL: Yes Equal, round and reactive pupils present Neck/C-Spine: COMMON NORMALS: full ROM, no lymphadenopathy, supple, no meningeal signs, no JVD and Thyroid normal THYROID: Thyroid normal Chest: COMMONS NORMALS: normal inspection of the chest and normal palpation of entire chest wall Resp: COMMON NORMALS: normal respiratory effort, No retractions, No use of accessory muscles and clear to auscultation bilaterally AUSCULTATION: clear to auscultation bilaterally Cardio: COMMON NORMALS: no JVD, regular rate, regular rhythm, S1 normal heart sound present, S2 normal heart sound present, No gallops present (Cardio), No clicks present (Cardio), No murmurs present (Cardio) and No rub (Cardio) R ATE: regular rate RHYTHM: regular rhythm HEART SOUNDS: S1 normal heart sound present and S2 normal heart sound present GI: COMMON NORMALS: Normal to inspection, nondistended, normoactive bowel sounds present, Soft to palpation, non-tender, No hepatosplenomegaly present and no masses PALPATION: Yes Soft to palpation and Yes No hepatosplenomegaly present Neuro: COMMON NORMALS: patient oriented x3 SENSORIUM/ORIENTATION: Yes alert MENINGEAL SIGNS: Yes no meningeal signs Course 2 Vital Signs: Vital signs: Vital Signs Temperature 99 F 11/09/23 12:08 Pulse Rate 73 11/09/23 15:45 Respiratory Rate 28 H 11/09/23 15:45 Blood Pressure 171/92 11/09/23 18:25 Pulse Oximetry 93 11/09/23 18:25 Oxygen Delivery Me thod Room Air 11/09/23 12:08 MDM - Neuro Symptoms/Deficit Medical Decision Making Patient had a extensive strokelike workup in the ER essentially everything was unremarkable. During his stay here his blood pressure continued to rise and he developed a headache. He was given 30 of Toradol which did not help his headache. He will be given 10 of hydralazine to help lower his blood pressure. Dr. Fernandez was consulted who suggested we do a CTA of his head and neck. This will be obtained. Dr. Fernandez will come evaluate the patient in ER. Anticipate admission. Dr. Winkler, and evaluated the patient we will get a head and neck CTA. Head neck CTA was negative. Dr. Fernandez wants us to talk with the neurologist at [place] secondary to the patient's poliomyelitis and see if they have any recommendations. Dr. Méndez neurology at [place] will be calling us back with called back and talk to myself about the patient he said he would consult our neurologist in the morning, get an MRI of the brain with and without contrast and make sure they get a T2 and a flair of the coronal plane images, he would also get a routine EEG. This was explained to the patient. The patient understands that we cannot get an EEG over the weekend and this will be done on outpatient basis. They accept this and still wished to be admitted. Differential Diagnosis Unlikely carpal tunnel syndrome, convulsions, delirium, subarachnoid hemorrhage, peripheral neuropathy, cerebrovascular accident, multiple sclerosis or transient cerebral ischemia Medical Records I reviewed the patient's medical records. Lab Data I reviewed the patient's lab results. 11/09/23 13:22 11/09/23 13:22 Radiology Impressions Chest X-Ray 11/09/23 12:23 IMPRESSION: No acute findings. Head CT 11/09/23 12:23 IMPRESSION: No acute intracranial abnormality. Head/Neck CTA 11/09/23 15:03 IMPRESSION: No large vessel stenosis or occlusion. IMPRESSION: No hemodynamically significant stenosis. REFERENCES: NASCET CRITERIA. The degree of stenosis in the cervical segment of the internal carotid artery is based on NASCET criteria. Normal is no stenosis. Mild is less than 50% stenosis. Moderate is 50-69% stenosis. Severe is 70% to 99% stenosis. Total occlusion is no detectable patent lumen. Laboratory Results WBC 6.82 10^3/uL (3.29-11.43) 11/09/23 13:22 RBC 4.52 10^6/uL (3.85-5.65) 11/09/23 13:22 Hgb 13.20 g/dL (11.27-16.99) 11/09/23 13:22 Hct 40.1 % (37-53) 11/09/23 13:22 MCV 88.7 fl (82-101) 11/09/23 13:22 MCH 29.2 pg (27-33) 11/09/23 13:22 MCHC 32.9 g/dL (30-55) 11/09/23 13:22 RDW 12.6 % (12.1-15.1) 11/09/23 13:22 Plt Count 231 10^3/cmm (157-399) 11/09/23 13:22 MPV 9.5 fL (7.4-10.4) 11/09/23 13:22 Neut % (Auto) 60.6 % 11/09/23 13:22 Lymph % (Auto) 25.4 % 11/09/23 13:22 [place] % (Auto) 12.0 % 11/09/23 13:22 Eos % (Auto) 1.6 % 11/09/23 13:22 Baso % (Auto) 0.3 % 11/09/23 13:22 Neut # (Auto) 4.13 10^3/uL (1.8-7.7) 11/09/23 13:22 Lymph # (Auto) 1.7 10^3/uL (0.8-4.8) 11/09/23 13:22 [place] # (Auto) 0.8 10^3/uL (0.2-0.9) 11/09/23 13:22 Eos # (Auto) 0.1 10^3/uL (0.0-0.8) 11/09/23 13:22 Baso # (Auto) 0.0 10^3/uL (0.0-0.1) 11/09/23 13:22 Nucleated RBC % (auto) 0 % 11/09/23 13:22 Nucleated RBCs # 0.0 /100WBC 11/09/23 13:22 PT 13.80 SECONDS (12.1-14.9) 11/09/23 13:22 INR 1.03 (0.8-1.2) 11/09/23 13:22 Sodium 138 mmol/L (136-145) 11/09/23 13:22 Potassium 3.7 mmol/L (3.5-5.1) 11/09/23 13:22 Chloride 103 mmol/L (98-107) 11/09/23 13:22 Carbon Dioxide 27 mmol/L (22-29) 11/09/23 13:22 Anion Gap 11.7 (5-19) 11/09/23 13:22 BUN 9 mg/dL (8-23) 11/09/23 13:22 Creatinine 0.7 mg/dL (0.7-1.2) 11/09/23 13:22 GFR Calculation Not Reportable 11/09/23 13:22 Glucose 139 mg/dL (65-115) H 11/09/23 13:22 POC Glucose 148 mg/dL (70-110) H 11/09/23 12:18 Calculated Osmolality 287 mOsm/kg (285-295) 11/09/23 13:22 Calcium 8.9 mg/dL (8.5-10.5) 11/09/23 13:22 Magnesium 2.0 mg/dL (1.7-2.3) 11/09/23 13:22 Total Bilirubin 0.3 mg/dL (0.15-1.2) 11/09/23 13:22 AST 16 U/L (0-40) 11/09/23 13:22 ALT 20 U/L (0-41) 11/09/23 13:22 Alkaline Phosphatase 89 U/L (40-130) 11/09/23 13:22 Troponin T Baseline 12 ng/L (0-15) 11/09/23 13:22 Troponin T 120 Minute 15.72 ng/L (0-15) H 11/09/23 15:46 Delta Troponin T 3.72 ABS# (0-10) 11/09/23 15:46 C-Reactive Protein 3.0 mg/L (0.0-4.9) 11/09/23 13:22 Total Protein 6.1 g/dL (6.6-8.7) L 11/09/23 13:22 Albumin 3.9 g/dL (3.5-5.2) 11/09/23 13:22 Globulin 2.2 g/dL (1.3-4.6) 11/09/23 13:22 TSH 0.92 uIU/mL (0.27-4.20) 11/09/23 13:22 Urine Color Straw (Yellow) 11/09/23 13:15 Urine Appearance Clear (CLEAR) 11/09/23 13:15 Urine pH 6 (5-7) 11/09/23 13:15 Ur Specific [place] 1.015 (1.005-1.030) 11/09/23 13:15 Urine Protein Neg (Negative) 11/09/23 13:15 Urine Glucose (UA) Norm (Normal) 11/09/23 13:15 Urine Ketones Negative (Negative) 11/09/23 13:15 Urine Blood Neg (Negative) 11/09/23 13:15 Urine Nitrate Negative (Negative) 11/09/23 13:15 Urine Bilirubin Neg (Negative) 11/09/23 13:15 Urine Urobilinogen Norm mg/dL (Negative) 11/09/23 13:15 Ur Leukocyte Esterase Negative (Negative) 11/09/23 13:15 Urine Opiates Screen Negative ng/mL (Negative) 11/09/23 13:15 Ur Barbiturates Screen Negative ng/mL (Negative) 11/09/23 13:15 Ur Phencyclidine Scrn Negative ng/mL (Negative) 11/09/23 13:15 Ur Amphetamines Screen Negative ng/mL (Negative) 11/09/23 13:15 U Benzodiazepines Scrn Negative ng/mL (Negative) 11/09/23 13:15 Urine Cocaine Screen Negative ng/mL (Negative) 11/09/23 13:15 U Marijuana (THC) Screen Negative ng/mL (Negative) 11/09/23 13:15 All radiology interpretation(s) finalized by discharge EKG Data EKG 1: I personally reviewed and interpreted this EKG as follows: EKG interpretation date: 11/09/23 EKG interpretation time: 12:25 Prior EKG tracings: not available for review Interpretation: EKG showed ventricular rate 63 bpm, OR interval 146, QRS duration 109, QTc of 390, ectopic atrial rhythm with occasional PVC, incomplete right bundle branch block, left anterior fascicular block EKG 2: I personally reviewed and interpreted this EKG as follows: EKG interpretation date: 11/09/23 EKG interpretation time: 18:28 Prior EKG tracings: available for review Interpretation: Ventricular rate 96 beats minute, OR interval 202, QRS duration 109, QTc of 401, sinus rhythm, left axis deviation Discharge Plan Discharge Patient Disposition: Admitted As Inpatient Admit Provider: Shaq Garcai Clinical Impression: Acute confusion, Hypertension, Headache Condition: Stable Coding Level of Care Code ED Shipping Support Clerk for Alison Julio
[2023-11-09 13:25] LABS: Add Urine Microscopic? NO; Charge for UA Resulting for Rev
[2023-11-09 13:36] LABS: Basophils % 0.3 %; Eosinophils # 0.1 10^3/uL (0.0-0.8); Eosinophils % 1.6 %; Hematocrit 40.1 % (37-53); Lymphocytes # 1.7 10^3/uL (0.8-4.8); Lymphocytes % 25.4 %; Mean Corpuscular HGB Conc 32.9 g/dL (30-55); Mean Corpuscular Hemoglobin 29.2 pg (27-33); Mean Corpuscular Volume 88.7 fl (82-101); Mean Platelet Volume 9.5 fL (7.4-10.4); Monocytes # 0.8 10^3/uL (0.2-0.9); Neutrophils # 4.13 10^3/uL (1.8-7.7); Neutrophils % 60.6 %; Nucleated Red Blood Cells % 0 %; Platelet Count 231 10^3/cmm (157-399); Red Blood Count 4.52 10^6/uL (3.85-5.65); Red Cell Distribution Width 12.6 % (12.1-15.1); White Blood Count 6.82 10^3/uL (3.29-11.43)
[2023-11-09 13:36] LABS: Bilirubin Urine Neg (Negative); Blood Urine Neg (Negative); Glucose Urine UA Norm (Normal); Ketones Urine Negative (Negative); Leukocyte Esterase Urine Negative (Negative); Nitrate Urine Negative (Negative); Protein Urine Neg (Negative); Specific Gravity, Urine 1.015 (1.005-1.030); Urine Appearance Clear (CLEAR); Urine Color Straw (Yellow); Urobilinogen Urine Norm (Negative); pH Urine 6 (5-7)
[2023-11-09 13:40] LABS: Amphetamines Screen Urine Negative (Negative); Barbiturates Screen Urine Negative (Negative); Benzodiazepines Screen Urine Negative (Negative); Cocaine Screen Urine Negative (Negative); Opiate Screen Urine Negative (Negative); PCP Screen Urine Negative (Negative); THC Screen Urine Negative (Negative)
[2023-11-09 13:51] LABS: INR 1.03 (0.8-1.2)
[2023-11-09 13:59] LABS: Troponin(5th) Baseline 12 ng/L (0-15)
[2023-11-09 14:06] LABS: Alanine Aminotransferase 20 U/L (0-41); Albumin Level 3.9 g/dL (3.5-5.2); Alkaline Phosphatase 89 U/L (40-130); Anion Gap 11.7 (5-19); Aspartate Amino Transferase 16 U/L (0-40); Blood Urea Nitrogen 9 mg/dL (8-23); Calcium 8.9 mg/dL (8.5-10.5); Carbon Dioxide 27 mmol/L (22-29); Chloride 103 mmol/L (98-107); Globulin 2.2 g/dL (1.3-4.6); Glucose 139 mg/dL (65-115); Osmolality Calculated 287 mOsm/kg (285-295); Potassium 3.7 mmol/L (3.5-5.1); Sodium 138 mmol/L (136-145); Thyroid Stimulating Hormone 0.92 uIU/mL (0.27-4.20); Total Bilirubin 0.3 mg/dL (0.15-1.2); Total Protein 6.1 g/dL (6.6-8.7)
[2023-11-09] MEDS: ketorolac 30 mg/mL INJ IVP (14:30)
--- NOTE | 2023-11-09 14:45 | ECG_ITS ---
[facility] Test Date: 2023-11-09 Pat Name: Arturo Curry Department: Room: Gender: Male Parts Delivery Driver: : 1950 Requested By: Kendall Holley Order Number: [id number] Nikolas MD: Ian Portillo M.D. Measurements Intervals [place] Rate: 60 P: -77 NV: 138 QRS: -37 QRSD: 110 T: 48 QT: 387 QTc: 388 Interpretive Statements SINUS RHYTHM LEFT AXIS DEVIATION [QRS AXIS < -30] INCOMPLETE RIGHT BUNDLE BRANCH BLOCK [90+ ms QRS DURATION, TERMINAL R IN V1/V2, 40+ ms S IN I/aVL/V4/V5/V6] POSSIBLE ANTERIOR MYOCARDIAL INFARCTION , OF INDETERMINATE AGE [30 ms Q WAVE IN V3/V4, OR R < 0.2 mV IN V4] Compared to ECG 11/09/2023 12:25:49 Left-axis deviation now present Myocardial infarct finding now present Left anterior fascicular block no longer present Electronically Signed On 11-10-2023 10:24:36 TRIAL CONSULTANT by Ian Portillo M.D. [id number]
--- NOTE | 2023-11-09 15:03 | CTR_ITS ---
PROCEDURE INFORMATION: Exam: CTA Head With Contrast, Arteriography Exam date and time: 11/09/2023 4:29 PM Age: 73 years old Clinical indication: Cognitive deficit; Altered mental status; Additional info: HTN, headache, confusion TECHNIQUE: Imaging protocol: Computed tomographic angiography of the head with contrast. Exam focused on the arteries. 3D rendering (Not supervised by radiologist): MIP and/or 3D reconstructed images were created by the technologist. Radiation optimization: All CT scans at this facility use at least one of these dose optimization techniques: automated exposure control; mA and/or kV adjustment per patient size (includes targeted exams where dose is matched to clinical indication); or iterative reconstruction. Contrast material: OMNI 350; Contrast volume: 100 ml; Contrast route: INTRAVENOUS (IV); REPORTING DATA: Count of CT and Cardiac NM exams in prior 12 months: This patient has received 0 known CTs and 0 known cardiac nuclear medicine studies in the 12 months prior to the current study. COMPARISON: CT head wo con* [id number] 11/09/2023 12:30 PM RADIATION DOSE METRICS: Total DLP (mGy-cm): 1154.62 FINDINGS: ANTERIOR CIRCULATION: Right internal carotid artery: Intracranial segment is patent with no significant stenosis. No aneurysm. Right middle cerebral artery: No occlusion or significant stenosis. No aneurysm. Right anterior cerebral artery: No occlusion or significant stenosis. No aneurysm. Left internal carotid artery: Intracranial segment is patent with no significant stenosis. No aneurysm. Left middle cerebral artery: No occlusion or significant stenosis. No aneurysm. Left anterior cerebral artery: No occlusion or significant stenosis. No aneurysm. POSTERIOR CIRCULATION: Right vertebral artery: No occlusion or significant stenosis. No aneurysm. Left vertebral artery: No occlusion or significant stenosis. No aneurysm. Basilar artery: No occlusion or significant stenosis. No aneurysm. Right posterior cerebral artery: No occlusion or significant stenosis. No aneurysm. Left posterior cerebral artery: No occlusion or significant stenosis. No aneurysm. Brain: No definite mass, mass effect, or midline shift. Cerebral ventricles: No ventriculomegaly. Bones/joints: Unremarkable. No acute fracture. Soft tissues: Unremarkable. PROCEDURE INFORMATION: Exam: CTA Neck With Contrast Exam date and time: 11/09/2023 4:29 PM Age: 73 years old Clinical indication: Cognitive deficit; Altered mental status; Additional info: HTN, headache, confusion TECHNIQUE: Imaging protocol: Computed tomographic angiography of the neck with contrast. Exam focused on the cervical segments of the vasculature. 3D rendering (Not supervised by radiologist): MIP and/or 3D reconstructed images were created by the technologist. Radiation optimization: All CT scans at this facility use at least one of these dose optimization techniques: automated exposure control; mA and/or kV adjustment per patient size (includes targeted exams where dose is matched to clinical indication); or iterative reconstruction. Contrast material: OMNI 350; Contrast volume: 100 ml; Contrast route: INTRAVENOUS (IV); REPORTING DATA: Count of CT and Cardiac NM exams in prior 12 months: This patient has received 0 known CTs and 0 known cardiac nuclear medicine studies in the 12 months prior to the current study. COMPARISON: MR cervical spine wo/w [id number] 05/21/2019 2:20 PM RADIATION DOSE METRICS: Total DLP (mGy-cm): 1154.62 FINDINGS: Right common carotid artery: No stenosis. No dissection or occlusion. Right internal carotid artery: No stenosis of the extracranial segment. No dissection or occlusion. Right external carotid artery: No occlusion or stenosis of the origin. Left common carotid artery: No stenosis. No dissection or occlusion. Left internal carotid artery: No stenosis of the extracranial segment. No dissection or occlusion. Left external carotid artery: No occlusion or stenosis of the origin. Right vertebral artery: No stenosis. No dissection or occlusion. Left vertebral artery: No stenosis. No dissection or occlusion. Soft tissues: Normal. No significant soft tissue swelling. Bones/joints: Cervical spondylosis. There is mild canal stenosis C3-C4, C4-C5, C6-C7. Pleural spaces: Biapical pleural-parenchymal scarring. CT/CT angio headneck* [id number] IMPRESSION: No large vessel stenosis or occlusion. IMPRESSION: No hemodynamically significant stenosis. REFERENCES: NASCET CRITERIA. The degree of stenosis in the cervical segment of the internal carotid artery is based on NASCET criteria. Normal is no stenosis. Mild is less than 50% stenosis. Moderate is 50-69% stenosis. Severe is 70% to 99% stenosis. Total occlusion is no detectable patent lumen.
[2023-11-09] MEDS: hyDRALAzine 20 mg/mL INJ 1 mL 10 MG IVP (15:23)
[2023-11-09] MEDS: ondansetron 2 mg/ML SDV 2 mL 8 MG IVP (15:40)
[2023-11-09] MEDS: methylPREDNISolone sod succ 40 mg/mL INJ IVP (15:40)
[2023-11-09] MEDS: diphenhydrAMINE 50 mg/mL SDV 1mL IVP (15:40)
[2023-11-09] MEDS: iohexol 350 mg/mL 500 mL Btl (per mL) IV (16:33)
[2023-11-09 16:35] LABS: Troponin 5 2HR 15.72 ng/L (0-15); Troponin 5 2HR Delta 3.72 ABS# (0-10)
--- NOTE | 2023-11-09 18:22 | P.HP_ITS ---
Providers/Chief Complaint 2 Primary Care Provider: Germain Munoz MD Chief Complaint: slurred speech, headache History of Present Illness Arturo Curry is a 73 year old male with past medical history of CAD, hypertension, polio with no residuals other than slight weakness in legs, dyslipidemia who presents to the ER today because of episode of slurred speech along with expressive aphasia. As per the family members patient was awake and alert, patient was able to talk but was talking gibberish. The episode lasted for few minutes. First episode was 10 AM in the morning while he was talking to some of his family members on the phone. Since then before coming to the ER patient had 2 more episodes. Patient present to the ER at 1217. While in the ER patient had 1 more episode of headache associated with slurred speech. Hospitalist service was consulted for further evaluation and management. Patient has had a CT head without contrast which is negative for stroke. We requested CTA head and neck and consult for neurology at [facility]. As per the neurologist Dr. Méndez at [place] who recommended patient to be admitted under observation with MRI with and without contrast of the head and an EEG for further evaluation of possible TIA. Review of Systems 2 General: Reports: 10 or more systems reviewed and unremarkable except in HPI and below Const: Denies: fever(s), chills, body aches, change in appetite, change in weight, malaise, night sweats, diaphoresis, change in sleep pattern, daytime sleepiness or snoring Eyes: Denies: change in vision, blurry vision, photophobia, eye discomfort or eye discharge ENMT: Denies: throat pain, enlarged tonsils, hoarseness, mouth pain, oral sores, dry mouth, tinnitus, nasal congestion or post nasal drip Card: Denies: chest pain, palpitations, irregular heart rhythm, edema, swelling of feet/ankles, lightheadedness, syncope, pre-syncope, dyspnea on exertion, orthopnea, leg pain with exertion or acrocyanosis Resp: Denies: dyspnea, productive cough, non-productive cough, wheezing, stridor, pain on inspiration, change in phlegm color, hemoptysis or chest congestion GI: Denies: abdominal pain, nausea, vomiting, hematemesis, coffee ground emesis, dysphagia, heartburn, diarrhea, constipation, bloating, GI cramping, change in bowel habits, pain on defecation, hematochezia or melena : Denies: flank pain, difficulty urinating, dysuria, urinary frequency, urinary urgency, urinary hesitancy, urinary dribbling, difficulty starting urination, change in urine stream, nocturia or hematuria Musc: Denies: neck pain, back pain, extremity pain, joint pain, joint swelling, joint redness, joint stiffness or limited range of motion Neuro: Denies: headache(s), numbness in extremities, weakness in extremities, sensory changes, lack of coordination, difficulty walking, frequent falls, dizziness, vertigo, confusion, Slurred speech present, difficulty communicating thoughts or seizure-like activity Psych: Denies: anxiety, depression, mood swings, panic attacks, hopelessness or irritability Endo: Denies: polyuria, polydipsia, tired all the time, cold intolerance, excessive sweating, flushing or heat intolerance Himanshu/Lymph: Denies: easy bruising or easy bleeding All/Imm: Denies: tongue swelling, facial swelling or acute wheezing Medications/Allergies Home Medications Medication Instructions Recorded Confirmed Last Taken Type tamsulosin 0.4 mg capsule 0.8 mg PO DAILY 05/24/20 11/09/23 11/09/23 History nitroglycerin 0.4 mg sublingual 0.4 mg sublingual Q5M PRN Chest 03/27/23 11/09/23 Unknown Rx tablet Pain #20 tabs aspirin 81 mg tablet,delayed 81 mg PO DAILY #90 tabs 06/04/23 11/09/23 11/09/23 Rx release (Adult Aspirin Regimen) atorvastatin 10 mg tablet See Rx Instructions .Route .COMPLEX 11/09/23 11/09/23 11/07/23 History coenzyme Q10 100 mg capsule 100 mg PO DAILY 11/09/23 11/09/23 11/09/23 History (CoQ-10) omeprazole 20 mg capsule,delayed 20 mg PO DAILY 11/09/23 11/09/23 11/09/23 History release Allergies Allergy/AdvReac Type Severity Reaction Status Date / Time Aivnamy-PBQ-ExU Reductase Allergy Severe ADR-Muscle Verified 06/04/23 13:02 Inhibitor Pain adhesive Allergy Unknown Verified 06/04/23 13:02 codeine Allergy ALGY-Difficulty Verified 06/04/23 13:02 Breathing iodine Allergy NA Verified 06/04/23 13:02 morphine Allergy ADR-Halluci Verified 06/04/23 13:02 nating PFSH Acute 2 PFSH: Medical History CAD (coronary artery disease) Statin intolerance HTN (hypertension) Dyslipidemia Poliomyelitis age 1 Hypotestosteronism Renal calculi BPH loc w urin obs/LUTS Surgical History History of hip surgery Left [place], [place] History of colonoscopy with polys History of coronary artery stent placement February 2022 at [facility] S/P cholecystectomy H/O foot surgery S/P hernia repair Bilateral Family History Father , 72 Lung disease Social History Smoking and tobacco/nicotine status: former use of tobacco/nicotine Second hand smoke exposure: No Alcohol intake: never Substance/Drug Use: never Adopted: No Caregiver/support person: No Lives independently: Yes Household members: spouse Housing: House Marital status: Number of children: 3 Highest education level completed: High School Graduate service: No Current occupational status: retired and disabled Current occupation: Semi Pets and animals: Yes Do you think of yourself as: Straight/Heterosexual Current gender identity: Male Vitals/I&O/Wt Last Vital Signs Temp 99 F 11/09/23 12:08 Pulse 73 11/09/23 15:45 Resp 28 H 11/09/23 15:45 BP 171/92 11/09/23 16:15 Pulse Ox 100 11/09/23 15:45 O2 Del Method Room Air 11/09/23 12:08 Weight last 48 hrs Weight 88.451 kg Physical Exam 2 Narrative: General: No acute distress, AO x3, anxious HEENT: PERRLA, pupils bilaterally equal and reactive Chest: Normal vesicular breath sounds, no added sounds, equal good air entry bilaterally CVS: S1-S2 regular, no murmurs, no tachycardia, no gallops, no rubs Abdomen: Soft, nontender, no organomegaly, bowel sounds present Neuro: No focal deficits, no facial deformity, AO x3, power 5/5 in all limbs Data 11/10/23 03:17 11/10/23 03:17 A&P Assessment and plan (1) TIA (transient ischemic attack): Appreciate recommendations from punctuation. Appreciate CT head and CTA head and neck results. Check MRI with and without contrast. Specifically asked for T2 with FLAIR and coronal sections. Aspirin 325 mg one-time followed by 81 mg daily, continue with home dose of statin. Check A1c, lipid panel. Goal blood pressure less than 140/90 mmHg. Blood pressure slightly elevated. Will start on amlodipine 10 mg daily with concerns for vasospasm leading to TIA. (2) CAD (coronary artery disease): No chest pain. Continue with home dose of aspirin. Check echocardiogram. (3) History of coronary artery stent placement: (4) Hypertension: Qualifiers: Hypertension type: unspecified Qualified Code(s): I10 - Essential (primary) hypertension (5) Statin intolerance: (6) Headache: Qualifiers: Headache chronicity pattern: acute headache Headache type: unspecified Intractability: not intractable Qualified Code(s): R51.9 - Headache, unspecified Plan Full code PT/OT/speech therapy. Advance diet as per nursing dysphagia protocol. Protonix for PUD prophylaxis Heparin 5000-12 hourly for DVT prophylaxis. Attestations 2 Medical Necessity Statement*: Admitted under observation for further evaluation and management of TIA Diagnoses TIA (transient ischemic attack) G45.9 CAD (coronary artery disease) I25.10 History of coronary artery stent placement Z95.5 Hypertension I10 Hypertension type: unspecified Statin intolerance Z78.9 Headache R51.9 Headache chronicity pattern: acute headache Headache type: unspecified Intractability: not intractable
--- NOTE | 2023-11-09 18:28 | ECG_ITS ---
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 Measurements Intervals [place] Rate: 96 P: 35 ND: 202 QRS: -44 QRSD: 109 T: 59 QT: 348 QTc: 440 Interpretive Statements SINUS RHYTHM LEFT AXIS DEVIATION [QRS AXIS < -30] Compared to ECG 11/09/2023 14:45:14 Junctional rhythm no longer present Incomplete right bundle-branch block no longer present Myocardial infarct finding no longer present Electronically Signed On 11-10-2023 10:23:09 QUALITY ASSURANCE INSPECTOR by Ian Portillo M.D. [id number]
[2023-11-09 19:06] LABS: Erythrocyte Sedimentation Rate 8 mm/hr (0-10)
[2023-11-09 19:19] LABS: D Dimer 1.05 ug/mLFEU (0-0.59)
[2023-11-09] MEDS: aspirin 325 mg Tablet PO (19:35)
[2023-11-09 19:44] LABS: Thyroid Stimulating Hormone 0.58 uIU/mL (0.27-4.20); Vitamin B12 611 pg/mL (232-1245)
[2023-11-09 20:00] LABS: Iron 64 ug/dL (59-158); Percent Saturation 21.4 % (20-50); Total Iron Binding Capacity 299 mcg/dl; Unsaturated Iron Binding 235 ug/dL (112-347)
[2023-11-09 20:11] LABS: Troponin 5 6HR 10.82 ng/L (0-15)
[2023-11-09 20:15] LABS: Troponin 5 6HR Delta -1.18 ng/L (0-12)
[2023-11-09] MEDS: heparin 5,000 unit/mL INJ 1 mL 5000 UNIT SUBCUT (21:22)
[2023-11-09] MEDS: amlodipine 10 mg Tablet PO (21:28)
[2023-11-10] VITALS (7 sets, daily range): BP systolic 108–125; BP diastolic 69–79; PULSE 68–96; RESP 18–21; TEMP 36.4–37.4; O2SAT 91–97; BMI 26.0
[2023-11-10 03:29] LABS: Basophils % 0.1 %; Hematocrit 42.4 % (37-53); Lymphocytes # 1.2 10^3/uL (0.8-4.8); Lymphocytes % 13.7 %; Mean Corpuscular HGB Conc 33.7 g/dL (30-55); Mean Corpuscular Hemoglobin 29.7 pg (27-33); Mean Corpuscular Volume 88.1 fl (82-101); Mean Platelet Volume 9.4 fL (7.4-10.4); Monocytes # 0.4 10^3/uL (0.2-0.9); Monocytes % 5.3 %; Neutrophils # 6.76 10^3/uL (1.8-7.7); Neutrophils % 80.7 %; Nucleated Red Blood Cells % 0 %; Platelet Count 273 10^3/cmm (157-399); Red Blood Count 4.81 10^6/uL (3.85-5.65); Red Cell Distribution Width 12.5 % (12.1-15.1); White Blood Count 8.38 10^3/uL (3.29-11.43)
[2023-11-10 03:47] LABS: Alanine Aminotransferase 17 U/L (0-41); Albumin Level 3.8 g/dL (3.5-5.2); Alkaline Phosphatase 96 U/L (40-130); Anion Gap 15.2 (5-19); Aspartate Amino Transferase 19 U/L (0-40); Blood Urea Nitrogen 11 mg/dL (8-23); Calcium 9.1 mg/dL (8.5-10.5); Carbon Dioxide 24 mmol/L (22-29); Chloride 99 mmol/L (98-107); Globulin 2.8 g/dL (1.3-4.6); Glucose 177 mg/dL (65-115); Osmolality Calculated 282 mOsm/kg (285-295); Potassium 4.2 mmol/L (3.5-5.1); Sodium 134 mmol/L (136-145); Total Bilirubin 0.4 mg/dL (0.15-1.2); Total Protein 6.6 g/dL (6.6-8.7)
[2023-11-10 03:48] LABS: Chol HDL Ratio 3.84 mg/dL (1.0-5.00); Cholesterol 169 mg/dL (0-200); HDL Cholesterol 44 mg/dL (60-100); LDL Cholesterol Calculated 115 mg/dL (50-129); LDL HDL Ratio 2.61 RATIO (0.00-3.22); Magnesium 2.1 mg/dL (1.7-2.3); Triglycerides 48 mg/dL (0-150)
[2023-11-10 03:49] LABS: Estmated Average Glucose 100; Hemoglobin A1C 5.1 % (4.0-6.0)
[2023-11-10 04:30] LABS: Folate Level > 20.0 ng/mL (4.5-32.2)
--- NOTE | 2023-11-10 06:00 | USCV_ITS ---
Arturo Curry Age: 73 Gender: M : 1950 Exam Date: 11/10/2023 07:29 Ordering Phys: Shaq Garcia MD Technologist: Lionel Mackey Exam Location: [facility] [place] Indication: stroke BP: 113 / 74 HR: 67 Rhythm: Sinus Technical Quality: Adequate MEASUREMENTS (Male / Female) Normal Values 2D ECHO LVOT Diameter 2.0 cm LV Ejection Fraction MOD 2C 61.6 % LV Ejection Fraction 2C AL 62.8 % LA Diameter 3.9 cm LA Width 4.0 cm LA Height 5.2 cm RA Width 5.1 cm RA Height 5.7 cm Aorta at Sinotubular Diameter 2.9 cm IVC Diameter 1.9 cm M-MODE Aortic Annulus Diameter 3.5 cm LA Ao Ratio MM 1.2 MV E Point Septal Separation 0.6 cm DOPPLER AV Peak Velocity 125.0 cm/s LVOT Peak Velocity 105.0 cm/s AV Area Cont Eq vti 3.0 cm squared AV Area Cont Eq pk 2.6 cm squared MV Peak Velocity 90.0 cm/s MV Area PHT 3.2 cm squared Mitral E to A Ratio 0.9 MV E' Velocity 43.0 cm/s Mitral E to MV E' Ratio 8.6 Mitral E to LV E' Lateral Ratio 7.7 Mitral E to LV E' Septal Ratio 9.8 TR Peak Velocity 134.2 cm/s TR Peak Gradient 7.2 mmHg TR Mean Velocity 101.6 cm/s TR Mean Gradient 4.3 mmHg TR Velocity Time Integral 28.4 cm Right Atrial Pressure 3.0 mmHg Pulmonary Artery Systolic Pressu 10.2 mmHg PV Peak Velocity 95.0 cm/s RV Acceleration Time 0.2 s RV Ejection Time 0.3 s RV AcT/ET 0.6 FINDINGS Left Ventricle Left ventricle is normal size. LV systolic function is normal with EF of 60 to 65%. No regional wall motion abnormalities seen. Grade 1 diastolic dysfunction. Right Ventricle Normal in size and function Right Atrium Normal in size Left Atrium Normal in size Mitral Valve Structurally normal mitral valve. Mild mitral regurgitation. Aortic Valve Structurally normal aortic valve. No significant stenosis or regurgitation. Tricuspid Valve Mild tricuspid regurgitation. Pulmonary artery systolic pressure is normal. Pulmonic Valve Not well-visualized Pericardium Normal Aorta Normal in size IVC Appears to be normal CONCLUSIONS LV systolic function is normal with EF of 60 to 65%. Grade 1 diastolic dysfunction. Mild mitral regurgitation. Mild tricuspid regurgitation Compared to prior echocardiogram from 2021, no significant changes are seen Ian Portillo MD (Electronically Signed) Final Date: 10 November 2023 10:41 S
[2023-11-10] MEDS: amlodipine 10 mg Tablet PO (09:00)
[2023-11-10] MEDS: tamsulosin 0.4 mg Capsule 0.8 MG PO (09:00)
[2023-11-10] MEDS: aspirin 81 mg EC Tablet PO (09:01)
[2023-11-10] MEDS: heparin 5,000 unit/mL INJ 1 mL 5000 UNIT SUBCUT (09:01)
[2023-11-10] MEDS: pantoprazole DR 40 mg Tablet PO (09:04)
--- NOTE | 2023-11-10 11:00 | MRR_ITS ---
PROCEDURE INFORMATION: Exam: MR Head Without Contrast Exam date and time: 11/10/2023 10:57 AM Age: 73 years old Clinical indication: Pain; Speech disturbance; Headache not specified; Additional info: Stroke, please get t2 fair coronal section TECHNIQUE: Imaging protocol: Magnetic resonance imaging of the head without contrast. COMPARISON: CT angio headneck* [id number] 11/09/2023 4:29 PM FINDINGS: Brain: There is no mass effect, midline shift, hemorrhage, extra-axial fluid collection or acute infarct. Scattered hemispheric white matter signal hyperintensities most likely represent chronic microvascular ischemic change. Chronic lacunar infarct versus prominent perivascular space noted in the inferior basal ganglia. Small robby cisterna magna noted in the posterior fossa. Cerebral ventricles: Normal. No ventriculomegaly. Bones/joints: Unremarkable. Paranasal sinuses: Normal as visualized. No acute sinusitis. Mastoid air cells: Normal as visualized. No mastoid effusion. Orbital cavities: The patient is post bilateral cataract surgery. Soft tissues: Unremarkable. MR/MR head wo/w con [id number] IMPRESSION: No acute intracranial process.
[2023-11-10] MEDS: gadobenate dimeglumine 20 mL vial IV (11:33)
--- NOTE | 2023-11-10 12:25 | P.DS_ITS ---
Discharge Providers Date of Admission: 11/09/23 18:06 Date of Discharge: November 10, 2023 Attending Provider at Admission: Shaq Garcia MD Attending Provider at Discharge: Shaq Garcia MD Consults: Neurology: [facility] Primary Care Provider: Germain Munoz MD Diagnoses at Discharge Discharge Diagnosis (1) TIA (transient ischemic attack): Status: Acute (2) CAD (coronary artery disease): Status: Chronic (3) History of coronary artery stent placement: Status: Acute Permanent problem details: February 2022 at [facility] (4) Hypertension: Status: Acute Qualifiers: Hypertension type: unspecified Qualified Code(s): I10 - Essential (primary) hypertension (5) Statin intolerance: Status: Chronic (6) Headache: Status: Acute Qualifiers: Headache chronicity pattern: acute headache Headache type: unspecified Intractability: not intractable Qualified Code(s): R51.9 - Headache, unspecified Reason for Visit Reason for Visit: slurred speech, headache Hospital Course Hospital Course Arturo Curry is a 73 year old male with past medical history of CAD, hypertension, polio with no residuals other than slight weakness in legs, dyslipidemia who presents to the ER today because of episode of slurred speech along with expressive aphasia. As per the family members patient was awake and alert, patient was able to talk but was talking gibberish. The episode lasted for few minutes. First episode was 10 AM in the morning while he was talking to some of his family members on the phone. Since then before coming to the ER patient had 2 more episodes. Patient present to the ER at 1217. While in the ER patient had 1 more episode of headache associated with slurred speech. Hospitalist service was consulted for further evaluation and management. Patient has had a CT head without contrast which is negative for stroke. We requested CTA head and neck and consult for neurology at [facility]. As per the neurologist Dr. Méndez at [place] who recommended patient to be admitted under observation with MRI with and without contrast of the head and an EEG for further evaluation of possible TIA. Patient was admitted to the hospital under observation. He did not have any further episodes during the night. He worked well with PT and OT. MRI was done which ruled out any acute stroke. EEG could not be done but has been ordered. During hospitalization he was found to have episodes of high blood pressure which are controlled by oral amlodipine. Discharge plan and counseling regarding lifestyle modification were discussed in detail with the patient. He verbalized understanding. He has been discharged hemodynamically stable condition on amlodipine 5 mg daily. He is to check his blood pressure daily at home maintain a blood pressure diary and follow-up with a primary care provider within next 10 days for further adjustment of antihypertensive and follow-up with neurologist in next 2 weeks. Physical Exam Narrative: General: No acute distress, AO x3, HEENT: PERRLA, pupils bilaterally equal and reactive Chest: Normal vesicular breath sounds, no added sounds, equal good air entry bilaterally CVS: S1-S2 regular, no murmurs, no tachycardia, no gallops, no rubs Abdomen: Soft, nontender, no organomegaly, bowel sounds present Neuro: No focal deficits, no facial deformity, AO x3, power 5/5 in all limbs Discharge Data Studies Completed and Pending Completed Studies During Hospitalization Category Date Time Status CT angio head neck [CT angio headneck* [id number]] Cat Scan 11/09/23 15:[address] head wo con* [id number] Stat Cat Scan 11/09/23 12:23 Completed XR chest 1V portable [id number] Stat Exams 11/09/23 12:23 Completed MR head wo/w con [id number] Stat MRI 11/10/23 11:00 Completed CV. echo complete* [id number] Routine Ultrasound 11/10/23 06:00 Completed Pending at discharge Category Date Time Status Blood Cultures ([facility]) Routine Lab 11/09/23 18:45 Received Blood Cultures ([facility]) Routine Lab 11/09/23 18:52 Received MAG [Magnesium] AM LABS Lab 11/11/23 04:00 Ordered MAG [Magnesium] AM LABS Lab 11/12/23 04:00 Ordered PHOS [Phosphorus] AM LABS Lab 11/11/23 04:00 Ordered PHOS [Phosphorus] AM LABS Lab 11/12/23 04:00 Ordered Radiology Impressions Chest X-Ray 11/09/23 12:23 IMPRESSION: No acute findings. Head CT 11/09/23 12:23 IMPRESSION: No acute intracranial abnormality. Head/Neck CTA 11/09/23 15:03 IMPRESSION: No large vessel stenosis or occlusion. IMPRESSION: No hemodynamically significant stenosis. REFERENCES: NASCET CRITERIA. The degree of stenosis in the cervical segment of the internal carotid artery is based on NASCET criteria. Normal is no stenosis. Mild is less than 50% stenosis. Moderate is 50-69% stenosis. Severe is 70% to 99% stenosis. Total occlusion is no detectable patent lumen. Head MRI 11/10/23 11:00 IMPRESSION: No acute intracranial process. Laboratory Results WBC 8.38 10^3/uL (3.29-11.43) 11/10/23 03:17 RBC 4.81 10^6/uL (3.85-5.65) 11/10/23 03:17 Hgb 14.30 g/dL (11.27-16.99) 11/10/23 03:17 Hct 42.4 % (37-53) 11/10/23 03:17 MCV 88.1 fl (82-101) 11/10/23 03:17 MCH 29.7 pg (27-33) 11/10/23 03:17 MCHC 33.7 g/dL (30-55) 11/10/23 03:17 RDW 12.5 % (12.1-15.1) 11/10/23 03:17 Plt Count 273 10^3/cmm (157-399) 11/10/23 03:17 MPV 9.4 fL (7.4-10.4) 11/10/23 03:17 Neut % (Auto) 80.7 % 11/10/23 03:17 Lymph % (Auto) 13.7 % 11/10/23 03:17 [place] % (Auto) 5.3 % 11/10/23 03:17 Eos % (Auto) 0.0 % 11/10/23 03:17 Baso % (Auto) 0.1 % 11/10/23 03:17 Neut # (Auto) 6.76 10^3/uL (1.8-7.7) 11/10/23 03:17 Lymph # (Auto) 1.2 10^3/uL (0.8-4.8) 11/10/23 03:17 [place] # (Auto) 0.4 10^3/uL (0.2-0.9) 11/10/23 03:17 Eos # (Auto) 0.0 10^3/uL (0.0-0.8) 11/10/23 03:17 Baso # (Auto) 0.0 10^3/uL (0.0-0.1) 11/10/23 03:17 Nucleated RBC % (auto) 0 % 11/10/23 03:17 Nucleated RBCs # 0.0 /100WBC 11/10/23 03:17 ESR 8 mm/hr (0-10) 11/09/23 18:45 PT 13.80 SECONDS (12.1-14.9) 11/09/23 13:22 INR 1.03 (0.8-1.2) 11/09/23 13:22 D-Dimer 1.05 ug/mLFEU (0-0.59) H 11/09/23 18:45 Sodium 134 mmol/L (136-145) L 11/10/23 03:17 Potassium 4.2 mmol/L (3.5-5.1) 11/10/23 03:17 Chloride 99 mmol/L (98-107) 11/10/23 03:17 Carbon Dioxide 24 mmol/L (22-29) 11/10/23 03:17 Anion Gap 15.2 (5-19) 11/10/23 03:17 BUN 11 mg/dL (8-23) 11/10/23 03:17 Creatinine 0.8 mg/dL (0.7-1.2) 11/10/23 03:17 GFR Calculation Not Reportable 11/10/23 03:17 Glucose 177 mg/dL (65-115) H 11/10/23 03:17 POC Glucose 148 mg/dL (70-110) H 11/09/23 12:18 Estimat Average Glucose 100 11/10/23 03:17 Hemoglobin A1c 5.1 % (4.0-6.0) 11/10/23 03:17 Calculated Osmolality 282 mOsm/kg (285-295) L 11/10/23 03:17 Calcium 9.1 mg/dL (8.5-10.5) 11/10/23 03:17 Phosphorus 4.0 mg/dL (2.5-4.5) 11/10/23 03:17 Magnesium 2.1 mg/dL (1.7-2.3) 11/10/23 03:17 Iron 64 ug/dL (59-158) 11/09/23 18:45 TIBC 299 mcg/dl 11/09/23 18:45 % Saturation 21.4 % (20-50) 11/09/23 18:45 Unsat Iron Binding 235 ug/dL (112-347) 11/09/23 18:45 Total Bilirubin 0.4 mg/dL (0.15-1.2) 11/10/23 03:17 AST 19 U/L (0-40) 11/10/23 03:17 ALT 17 U/L (0-41) 11/10/23 03:17 Alkaline Phosphatase 96 U/L (40-130) 11/10/23 03:17 Troponin T Baseline 12 ng/L (0-15) 11/09/23 13:22 Troponin T 120 Minute 15.72 ng/L (0-15) H 11/09/23 15:46 Delta Troponin T 3.72 ABS# (0-10) 11/09/23 15:46 Troponin T Hi Sens 6Hr 10.82 ng/L (0-15) 11/09/23 19:34 Troponin T Hi Sens 6Hr Delta -1.18 ng/L (0-12) L 11/09/23 19:34 C-Reactive Protein 3.0 mg/L (0.0-4.9) 11/09/23 13:22 Total Protein 6.6 g/dL (6.6-8.7) 11/10/23 03:17 Albumin 3.8 g/dL (3.5-5.2) 11/10/23 03:17 Globulin 2.8 g/dL (1.3-4.6) 11/10/23 03:17 Triglycerides 48 mg/dL (0-150) 11/10/23 03:17 Cholesterol 169 mg/dL (0-200) 11/10/23 03:17 LDL Cholesterol, Calc 115 mg/dL (50-129) 11/10/23 03:17 HDL Cholesterol 44 mg/dL (60-100) L 11/10/23 03:17 LDL/HDL Ratio 2.61 RATIO (0.00-3.22) 11/10/23 03:17 Cholesterol/HDL Ratio 3.84 mg/dL (1.0-5.00) 11/10/23 03:17 Vitamin B12 611 pg/mL (232-1245) 11/09/23 18:45 Folate > 20.0 ng/mL (4.5-32.2) 11/10/23 03:17 TSH 0.58 uIU/mL (0.27-4.20) 11/09/23 18:45 Urine Color Straw (Yellow) 11/09/23 13:15 Urine Appearance Clear (CLEAR) 11/09/23 13:15 Urine pH 6 (5-7) 11/09/23 13:15 Ur Specific [place] 1.015 (1.005-1.030) 11/09/23 13:15 Urine Protein Neg (Negative) 11/09/23 13:15 Urine Glucose (UA) Norm (Normal) 11/09/23 13:15 Urine Ketones Negative (Negative) 11/09/23 13:15 Urine Blood Neg (Negative) 11/09/23 13:15 Urine Nitrate Negative (Negative) 11/09/23 13:15 Urine Bilirubin Neg (Negative) 11/09/23 13:15 Urine Urobilinogen Norm mg/dL (Negative) 11/09/23 13:15 Ur Leukocyte Esterase Negative (Negative) 11/09/23 13:15 Urine Opiates Screen Negative ng/mL (Negative) 11/09/23 13:15 Ur Barbiturates Screen Negative ng/mL (Negative) 11/09/23 13:15 Ur Phencyclidine Scrn Negative ng/mL (Negative) 11/09/23 13:15 Ur Amphetamines Screen Negative ng/mL (Negative) 11/09/23 13:15 U Benzodiazepines Scrn Negative ng/mL (Negative) 11/09/23 13:15 Urine Cocaine Screen Negative ng/mL (Negative) 11/09/23 13:15 U Marijuana (THC) Screen Negative ng/mL (Negative) 11/09/23 13:15 Vitals Last Vital Signs Temp 97.6 F 11/10/23 08:31 Pulse 79 11/10/23 08:31 Resp 20 H 11/10/23 08:31 BP 113/74 11/10/23 08:31 Pulse Ox 94 11/10/23 07:15 O2 Del Method Room Air 11/10/23 07:15 Discharge Plan Discharge Patient Disposition: Home Condition: Stable Prescriptions: New amlodipine 10 mg Tablet 5 mg PO DAILY Qty: 30 0RF Continued tamsulosin 0.4 mg capsule 0.8 mg PO DAILY aspirin [Adult Aspirin Regimen] 81 mg tablet,delayed release (DR/EC) 81 mg PO DAILY Qty: 90 3RF nitroglycerin 0.4 mg tablet, sublingual 0.4 mg sublingual Q5M PRN (Reason: Chest Pain) Qty: 20 3RF atorvastatin 10 mg tablet See Rx Instructions .ROUTE .COMPLEX Rx Instructions: Take 10 mg by mouth twice weekly with CoQ10. Saturday and omeprazole 20 mg capsule,delayed release(DR/EC) 20 mg PO DAILY coenzyme Q10 [CoQ-10] 100 mg Capsule 100 mg PO DAILY Discharge Orders: Discharge Order (Routine); Ordered 11/10/23 Ordered By: Shaq Garcia Referrals: Germain Munoz MD [Primary Care Provider] - Ashwini Archuleta MD [Physician] - 2 weeks Discharge Diet: Cardiac Discharge Activity: Resume usual activity and Increase activity as tolerated Patient Instructions: Opioid Safety Activity Restrictions/Additional Instructions: Please follow-up with a primary care provider within next 1 week to 10 days. Check your blood pressure daily at home and maintain a blood pressure diary and follow-up with your primary care provider for further adjustment of antihypertensive. For now take amlodipine 5 mg daily for high blood pressure. Please follow-up with neurologist within the next 2 weeks. Discharge Attestations Time Spent in Discharge Care*: greater than 30 min Specific Discharge Activities: educating patient, educating and/or supporting family/caregiver, discussing with pcp/other providers, discussing with case assistant/social workers/dc planners, documenting/other paperwork and evaluating patient/reviewing data Status at Discharge: Cognitive status at discharge: cognitively intact , Behavioral status at discharge: cooperative , Functional status at discharge: independent ambulation , Overall status at discharge: patient is back to baseline Quality Metrics Clinical Quality Measures [ No reported AMI, CVA or VTE this stay] Coding Level of Care Code 06831 Total time (in minutes) for Discharge: 60 Diagnoses TIA (transient ischemic attack) G45.9 CAD (coronary artery disease) I25.10 History of coronary artery stent placement Z95.5 Hypertension I10 Hypertension type: unspecified Statin intolerance Z78.9 Headache R51.9 Headache chronicity pattern: acute headache Headache type: unspecified Intractability: not intractable
--- NOTE | 2023-11-10 14:34 | PC.NURSE ---
Discharge Note Patient discharged to [home] via [w/c to POV] accompanied by [his and family]. Discharge instructions reviewed with patient and/or customer engagement representative. Mobile pharmacy medications and/or prescriptions provided. Belongings/home medications returned.
== END 2023-11-10 14:36 | disposition home or self-care (01) ==
LOC: ER 15:07 → CSU 18:40
PROVIDERS: Admitting Provider Student in an Organized Health Care Education/Training Program; Emergency Provider Emergency Medicine; PCP Radiology Neuroradiology; Visit Provider Student in an Organized Health Care Education/Training Program
DX: G45.9 Transient cerebral ischemic attack, unspecified (principal); I25.10 Atherosclerotic heart disease of native coronary artery without angina pectoris; Z95.5 Presence of coronary angioplasty implant and graft; I10 Essential (primary) hypertension; Z78.9 Other specified health status; R51.9 Headache, unspecified; E78.5 Hyperlipidemia, unspecified; N40.1 Benign prostatic hyperplasia with lower urinary tract symptoms; N13.8 Other obstructive and reflux uropathy; Z87.891 Personal history of nicotine dependence
CPT/HCPCS: 36415; 36416; 70450; 70496; 70498; 70553; 71045; 80053; 80061; 80306; 81003; 82607; 82746; 82962; 83036; 83540; 83550; 83735; 84100; 84443; 84484; 85025; 85378; 85610; 85651; 86140; 87040; 92523; 92610; 93005; 93306; 94664; 96372; 96374; 96375; 96376; 97161; 97165; 99285; A9577; G0378; J0360; J1200; J1644; J1885; J2405; J2920; Q9967

== ENCOUNTER → 2023-12-03 13:53 | Outpatient (BNVA) | payer MEDICARE, OTHER, SELFPAY | PROVIDERS: PCP Radiology Neuroradiology; Visit Provider Internal Medicine | DX: I25.10 Atherosclerotic heart disease of native coronary artery without angina pectoris (principal); Z78.9 Other specified health status; E78.5 Hyperlipidemia, unspecified; I10 Essential (primary) hypertension; Z87.891 Personal history of nicotine dependence | CPT/HCPCS: 99214 ==

== ENCOUNTER → 2024-06-01 11:20 | Outpatient (BNVA) | payer MEDICARE, SELFPAY | PROVIDERS: PCP Radiology Neuroradiology; Visit Provider Internal Medicine | DX: I25.10 Atherosclerotic heart disease of native coronary artery without angina pectoris (principal); Z78.9 Other specified health status; E78.5 Hyperlipidemia, unspecified; I10 Essential (primary) hypertension; Z87.891 Personal history of nicotine dependence | CPT/HCPCS: 99214 ==

== ENCOUNTER 2024-09-02 20:00 | Outpatient (CLI) | payer MEDICARE, SELFPAY | END 2024-09-02 20:01 | disposition home or self-care (01) | LOC: SLEEP 23:21 | PROVIDERS: PCP Radiology Neuroradiology; Visit Provider Clinical Nurse Specialist Family Health | DX: G47.30 Sleep apnea, unspecified (principal); R53.83 Other fatigue; R06.83 Snoring | CPT/HCPCS: 95810 ==

== ENCOUNTER → 2025-05-31 14:53 | Outpatient (BNVA) | payer MEDICARE, SELFPAY | PROVIDERS: PCP Radiology Neuroradiology; Visit Provider Internal Medicine | DX: I25.10 Atherosclerotic heart disease of native coronary artery without angina pectoris (principal); E78.5 Hyperlipidemia, unspecified; I10 Essential (primary) hypertension; Z79.82 Long term (current) use of aspirin; Z87.891 Personal history of nicotine dependence; R07.9 Chest pain, unspecified; R06.02 Shortness of breath | CPT/HCPCS: 99214 ==

== ENCOUNTER 2025-07-02 09:34 | Outpatient (CLI) | payer MEDICARE, SELFPAY ==
--- NOTE | 2025-07-02 09:58 | NMCV_ITS ---
NM alvino perf SPECT r/s* [id number] Arturo Curry Age: 74 Gender: M : 1950 Exam Date: 07/02/2025 10:39 Ordering Phys: Ian Portillo M.D ([email or web address]) Technologist: CARLOS ALBERTO Hernandez Exam Location: [facility] [place] Indications: cp STRESS TEST Please see separate stress test report in [facility] for full findings IMAGE PROTOCOL Rest/Stress 1 Lexiscan Day Radiopharmaceutical Dose (mCi) Administration Site Administered by Rest: Tc-99m 10.4 IV CARLOS ALBERTO Grimes Sestamibi Stress:Tc-99m 32.5 IV CARLOS ALBERTO Henrandez Sestamichristian Rest: 02-Jul-2025 60 Discovery 630 Stress: 02-Jul-2025 30 Discovery 630 Images obtained in supine and prone position. 0.4mg Lexiscan. SPECT RESULTS Technical Quality: Good Raw Data Analysis: Normal Image Corrections: No attenuation or motion correction applied Summed Stress Score: 0 Summed Rest Score: 6 Summed Difference Score: 0 PERFUSION FINDINGS SPECT images demonstrate homogeneous tracer distribution throughout the myocardium. FUNCTIONAL RESULTS (calculated via Gated SPECT) Stress Image LV EF (%): 69 Stress EDV (mL):109 TID: 0.92 Stress ESV (mL):34 FUNCTIONAL FINDINGS: There is normal left ventricular systolic function. IMPRESSIONS Myocardial perfusion imaging is normal. Nathalie Harris MD (Electronically Signed) Final Date: 09 July 2025 16:17 S
--- NOTE | 2025-07-02 09:58 | ECG_ITS ---
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 The perfusion scan will be documented separately. DATA: Baseline heart rate was 61 beats per minute. Baseline blood pressure was 123/95 millimeters of mercury. Target heart rate was 144. Maximum heart rate achieved was 87. which was 60% of the predicted target heart rate. Maximum blood pressure was 125/95 millimeters of mercury. The reason for ending the test was completion of the protocol. The patient did not experience any symptoms. ELECTROCARDIOGRAM: BASELINE: Sinus rhythm. Normal axis. Incomplete right bundle branch block no ST-T changes suggestive of ischemia noted. No arrhythmia noted. EXERCISE: After Lexiscan injection, no ST-T changes suggestive of ischemic noted. No arrhythmia noted. CONCLUSION: Please note due to baseline abnormality of the EKG specificity and sensitivity of the EKG portion of LexiScan MIBI stress test will be low 1. EKG not suggestive of ischemia 2. Lexiscan injection unremarkable. 3. Perfusion scan will be documented separately. Electronically Signed On 07-24-2025 15:57:59 CDT by YUMIKO SMITH [email or web address]
[2025-07-02 09:59] VITALS: BMI 25.0
[2025-07-02] MEDS: aminophylline 25 mg/mL SDV 20 mL IVP (11:29)
[2025-07-02 11:35] VITALS: BP 123/79; PULSE 79
--- NOTE | 2025-07-02 15:00 | USCV_ITS ---
Arturo Curry Age: 74 Gender: M : 1950 Exam Date: 07/02/2025 12:45 Ordering Phys: Ian Portillo M.D ([email or web address]) Technologist: CRIS Exam Location: [facility] [place] Indication: sob BP: 123 / 79 HR: 56 Rhythm: Sinus Technical Quality: Adequate MEASUREMENTS (Male / Female) Normal Values 2D ECHO LV Diastolic Diameter PLAX 5.0 cm 4.2 - 5.9 / 3.9 - 5.3 cm IVS Diastolic Thickness 0.9 cm 0.6 - 1.0 / 0.6 - 0.9 cm IVS Systolic Thickness 1.2 cm LVPW Diastolic Thickness 1.0 cm 0.6 - 1.0 / 0.6 - 0.9 cm LVPW Systolic Thickness 2.0 cm LVOT Diameter 2.1 cm LV Ejection Fraction 2D Teich 64.5 % LV Ejection Fraction MOD 4C 72.1 % LV Ejection Fraction MOD 2C 73.6 % LV Ejection Fraction 2C AL 73.3 % LA Diameter 3.6 cm Aorta at Sinotubular Diameter 2.7 cm IVC Diameter 1.3 cm M-MODE LA Ao Ratio MM 1.5 AV Cusp Separation MM 2.2 cm DOPPLER AV Peak Velocity 134.0 cm/s LVOT Peak Velocity 136.0 cm/s AV Area Cont Eq vti 3.9 cm squared AV Area Cont Eq pk 3.7 cm squared MV Peak Velocity 84.0 cm/s MV Area PHT 4.3 cm squared Mitral E to A Ratio 1.0 TR Peak Velocity 252.0 cm/s TR Peak Gradient 25.4 mmHg TR Mean Velocity 198.0 cm/s TR Mean Gradient 16.3 mmHg TR Velocity Time Integral 65.3 cm PV Peak Velocity 94.3 cm/s RV Ejection Time 0.3 s FINDINGS Left Ventricle Normal left ventricular size, systolic function and wall thickness, with no regional wall motion abnormalities. Left ventricular ejection fraction is estimated at 60 %. Grade I/IV diastolic dysfunction (abnormal relaxation filling pattern), normal to mildly elevated filling pressures. Right Ventricle The right ventricle is normal in size and function. Right Atrium The right atrium is normal in size. Left Atrium The left atrium is normal in size. Mitral Valve Structurally normal mitral valve without significant stenosis or prolapse. There is no mitral regurgitation. Aortic Valve Structurally normal aortic valve without significant sclerosis or stenosis. There is no aortic regurgitation. Tricuspid Valve Structurally normal tricuspid valve without significant stenosis or regurgitation. Pulmonary artery systolic pressure is normal. Pulmonic Valve Structurally normal pulmonic valve without significant stenosis. There is no pulmonic regurgitation. Pericardium Normal pericardium without effusion. Aorta Normal ascending aorta dimension. IVC The inferior vena cava appears normal. CONCLUSIONS abnormalities. Left ventricular ejection fraction is estimated at 60 %. Grade I/IV diastolic dysfunction (abnormal relaxation filling pattern), normal to mildly elevated filling pressures. There is no pericardial effusion. No significant valve abnormalities. Right atrial pressure is around 5 mm of mercury. Nathalie Harris MD (Electronically Signed) Final Date: 07 July 2025 21:33 S
== END 2025-07-02 09:35 | disposition home or self-care (01) ==
LOC: CDL 09:38
PROVIDERS: PCP Radiology Neuroradiology; Visit Provider Internal Medicine
DX: R07.9 Chest pain, unspecified (principal); R06.02 Shortness of breath; R93.1 Abnormal findings on diagnostic imaging of heart and coronary circulation
CPT/HCPCS: 36415; 78452; 93017; 93306; 96374; A9500; J0280; J2785